=== PATIENT | male | born 1960 | race Caucasian/White ===

== ENCOUNTER 2016-07-27 12:09 | Emergency (ER) | payer MEDICAID ==
[2016-07-27 12:15] VITALS: TEMP 97.3
--- NOTE | 2016-07-27 12:28 | CPEKG ---
Heart Rate: 126 RR Interval: 476 QRSD Interval: 82 QT Interval: 352 QTC Interval: 510 QRS [place]: 82 T Wave [place]: 27 EKG Severity - ABNORMAL ECG - EKG Impression: ATRIAL FIBRILLATION EKG Impression: VENTRICULAR TRIGEMINY EKG Impression: PROLONGED QT INTERVAL Electronically Signed By: Fritz Olson 27-Jul-2016 16:01:12
[2016-07-27] MEDS ORDERED: NS 1,000 ML IV ONE (12:29)
[2016-07-27 12:46] VITALS: BP 92/57; PULSE 66; RESP 18; O2SAT 96
--- NOTE | 2016-07-27 12:52 | EDPHY ---
H & P Stated Complaint: a fib Time Seen by Provider: 07/27/16 12:51 HPI/ROS: CHIEF COMPLAINT: Recurrent atrial fibrillation HISTORY OF PRESENT ILLNESS: The patient presents to the ED after an episode of recurrent atrial fibrillation. His symptoms began several hours prior to arrival. He reports mild associated dyspnea. The patient denies any chest pain or asymmetric calf pain or swelling. The patient reports he has been fully compliant with his Ticosyn, Coumadin, lisinopril and diltiazem. The patient reports he has had regular follow-up with his primary care provider. He denies any additional ongoing medical complaints. REVIEW OF SYSTEMS: A comprehensive 10 point review of systems is otherwise negative aside from elements mentioned in the history of present illness. - Personal History Current Tetanus/Diphtheria Vaccine: Yes Tetanus Vaccine Date: 2008 - Medical/Surgical History Hx Asthma: No Hx Chronic Respiratory Disease: No Hx Diabetes: No Hx Cardiac Disease: Yes Hx Renal Disease: No Hx Cirrhosis: No Hx Alcoholism: No Hx HIV/AIDS: No Hx Splenectomy or Spleen Trauma: No Other PMH: A fib, RSD, medication non-compliance, migraine headache, hemorrhoids , HTN, depression, anxiety, neuropathy, PTSD, ANAY, marijuana use. IBS, rectal bleeding r/t anticoagulants - Social History Smoking Status: Never smoked - Physical Exam Exam: General Appearance: Alert, no distress Eyes: Pupils equal and round no pallor or injection ENT, Mouth: Mucous membranes moist Respiratory: There are no retractions, lungs are clear to auscultation Cardiovascular: Regular rate and rhythm Gastrointestinal: Abdomen is soft and nontender, no masses, bowel sounds normal Neurological: A&O, normal motor function, normal sensory exam, normal cranial nerves Skin: Warm and dry, no rashes Musculoskeletal: Neck is supple nontender Extremities: symmetrical, full range of motion Constitutional: Initial Vital Signs Temperature (C) 36.3 C 07/27/16 12:13 Heart Rate 140 H 07/27/16 12:13 Respiratory Rate 22 H 07/27/16 12:13 Blood Pressure 79/66 L 07/27/16 12:13 O2 Sat (%) 97 07/27/16 12:13 O2 Delivery Mode Room Air Allergies/Adverse Reactions: amiodarone [Amiodarone] Allergy (Severe, Verified 07/27/16 12:12) Hives aspirin [Aspirin] Allergy (Severe, Verified 07/27/16 12:12) Hives digoxin [Digoxin] Allergy (Severe, Verified 07/27/16 12:12) Hives ezetimibe [Ezetimibe] Allergy (Severe, Verified 07/27/16 12:12) Hives metoprolol succinate [From Toprol XL] Allergy (Severe, Verified 07/27/16 12:12) Hives morphine [Morphine] Allergy (Severe, Verified 07/27/16 12:12) Other-Enter Comments Penicillins Allergy (Severe, Verified 07/27/16 12:12) Hives simvastatin [Simvastatin] Allergy (Severe, Verified 07/27/16 12:12) Hives zolpidem [Zolpidem] Allergy (Severe, Verified 07/27/16 12:12) Hives lorazepam [Lorazepam] Allergy (Unknown, Verified 07/27/16 12:12) Barbiturates Allergy (Verified 07/27/16 12:12) carvedilol Allergy (Verified 07/27/16 12:12) Hives codeine [Codeine] Allergy (Verified 07/27/16 12:12) Horse/Equine Containing Products [Horse/Equine Product Derivatives] Allergy ( Verified 07/27/16 12:12) lidocaine [Lidocaine] Allergy (Verified 07/27/16 12:12) meperidine HCl [From Demerol] Allergy (Verified 07/27/16 12:12) Opioids - Morphine Analogues [Opioids-Morphine & Related] Allergy (Verified 12:12) Unknown procaine HCl [From Novocain] Allergy (Verified 07/27/16 12:12) Sulfa (Sulfonamide Antibiotics) Allergy (Verified 07/27/16 12:12) sumatriptan [From Imitrex] Allergy (Verified 07/27/16 12:12) sumatriptan succinate [From Imitrex] Allergy (Verified 07/27/16 12:12) tetracycline [Tetracycline] Allergy (Verified 07/27/16 12:12) Home Medications: Medication Instructions Recorded Acetaminophen [Tylenol 325mg (*)] 650 mg PO Q4-6PRN PRN 04/18/16 Dofetilide [Tikosyn 0.25 MG (*)] 0.25 mg PO BID 04/18/16 Lisinopril [Zestril 40 mg (*)] 40 mg PO DAILY 04/18/16 SUMAtriptan [Imitrex 50 MG (*)] 50 mg PO DAILY PRN 04/18/16 Diltiazem Cd [Cardizem ER 120 MG 120 mg PO TID #90 cap 04/21/16 (*)] Warfarin Sodium [Coumadin 5MG (*)] 10 mg PO SUMOTUWETHFR 04/25/16 Warfarin Sodium [Coumadin 5MG (*)] 12.5 mg PO SA 04/25/16 Acetaminophen [Tylenol 325mg (*)] 650 mg PO Q4HRS PRN #0 tab 04/26/16 Ticosyn 05/01/16 Medical Decision Making - Diagnostics Imaging: EKG: Complete interpretation has been separately recorded in the [facility] archive. Summary impression: Atrial fibrillation with rapid ventricular response, rate 126. ED Course/Re-evaluation: While in the emergency department the patient was observed to convert into a normal sinus rhythm. I evaluated the patient at 1:15 p.m.. He is hemodynamically stable and a sinus rhythm. The patient reports he has been compliant with his Coumadin. At this point time I do feel he can safely be discharged from the emergency department. He is discharged home with customary aftercare instructions and return precautions. Differential Diagnosis: Differential diagnosis considered includes SVT, atrial fibrillation, premature ventricular contractions - Data Points Medications Given: Discontinued Medications Sodium Chloride (Ns) 1,000 mls @ 0 mls/hr IV ONCE ONE PRN Reason: Wide Open Stop: 07/27/16 12:30 Last Admin: 07/27/16 12:30 Dose: 1,000 mls Departure - Departure Disposition: Home, Routine, Self-Care Clinical Impression: Atrial fibrillation Condition: Good Instructions: Atrial Fibrillation (ED) Referrals: Lio Bryan MD [Primary Care Provider] - As per Instructions
== END 2016-07-27 13:04 | disposition home or self-care (01) ==
DX: I48.91 Unspecified atrial fibrillation (principal); I10 Essential (primary) hypertension; Z79.01 Long term (current) use of anticoagulants

== ENCOUNTER 2016-12-01 10:34 | Emergency (ER) | payer OTHER, MEDICAID ==
[2016-12-01] MEDS ORDERED: DILTIAZEM 25 MG/5 ML VIAL IVP ONE ×2 (10:46→11:34)
--- NOTE | 2016-12-01 10:46 | CPEKG ---
Heart Rate: 160 RR Interval: 375 QRSD Interval: 88 QT Interval: 300 QTC Interval: 490 QRS [place]: 93 T Wave [place]: -52 EKG Severity - ABNORMAL ECG - EKG Impression: ATRIAL FIBRILLATION EKG Impression: PAIRED VENTRICULAR PREMATURE COMPLEXES EKG Impression: BORDERLINE RIGHT AXIS DEVIATION Electronically Signed By: Kristine Catherine 02-Dec-2016 20:37:48
[2016-12-01 10:52] LABS: % IMMATURE GRANULYOCYTES 0.2 % (0.0-1.1); ABSOLUTE IMMATURE GRANULOCYTES 0.02 10^3/uL (0.00-0.10); ADD DIFF? NO; ADD MORPH? NO; ADD SCAN? NO; ATYPICAL LYMPHOCYTE FLAG 10 (0-99); FRAGMENT RBC FLAG 0 (0-99); HEMATOCRIT 44.6 % (40.0-51.0); HEMOGLOBIN 15.1 g/dL (13.7-17.5); LEFT SHIFT FLG 0 (0-99); LIPEMIA HEMOLYSIS FLAG 90 (0-99); MEAN CELL HEMOGLOBIN 30.3 pg (27.9-34.1); MEAN CELL HEMOGLOBIN CONCENTR. 33.9 g/dL (32.4-36.7); MEAN CELL VOLUME 89.6 fL (81.5-99.8); MEAN PLATELET VOLUME 12.4 fL (8.7-11.7); PLATELET CLUMPS FLAG 10 (0-99); PLATELET COUNT 210 10^3/uL (150-400); RED BLOOD CELL COUNT 4.98 10^6/uL (4.40-6.38); RED CELL DISTRIBUTION WIDTH 14.6 % (11.5-15.2)
--- NOTE | 2016-12-01 10:58 | EDPHY ---
H & P Time Seen by Provider: 12/01/16 10:45 HPI/ROS: CHIEF COMPLAINT: Recurrent atrial fibrillation HISTORY OF PRESENT ILLNESS: The patient is a 56-year-old male, well known to this ED for recurrent atrial fibrillation, presents in Afib with RVR. The patient states he developed palpitations around 9:30 a.m. while on the bus. He has associated dizziness and states it is "the usual". He has been fully compliant with his Ticosyn, Lisinopril, Coumadin, and Diltazem. He denies any additional medical complaints. REVIEW OF SYSTEMS: A comprehensive 10 point review of systems is otherwise negative aside from elements mentioned in the history of present illness. Past Medical/Surgical History: Atrial fibrillation, RSD, Migraines, Hemorrhoids, HTN, Depression, Anxiety, Neuropathy, PTSD, ANAY, Marijuana use. IBS, Rectal bleeding. Social History: Nonsmoker. No alcohol. Currently resides in [place]. Smoking Status: Never smoked Physical Exam: General Appearance: Alert, pleasant Eyes: Pupils equal and round, no conjunctival pallor or injection ENT, Mouth: Mucous membranes moist Neck: Normal inspection Respiratory: Lungs are clear to auscultation Cardiovascular: irregularly irregular tachycardia Gastrointestinal: Abdomen is soft and non-tender Neurological: A&O, nonfocal exam Skin: Warm and dry, no rash Extremities: Nontender, no pedal edema Psychiatric: Mood and affect normal Constitutional: Initial Vital Signs Temperature (C) 36.7 C 12/01/16 10:42 Heart Rate 158 H 12/01/16 10:42 Respiratory Rate 18 12/01/16 10:42 Blood Pressure 146/82 H 12/01/16 10:42 O2 Sat (%) 95 12/01/16 10:42 O2 Delivery Mode Room Air Allergies/Adverse Reactions: amiodarone [Amiodarone] Allergy (Severe, Verified 07/27/16 12:12) Hives aspirin [Aspirin] Allergy (Severe, Verified 07/27/16 12:12) Hives digoxin [Digoxin] Allergy (Severe, Verified 07/27/16 12:12) Hives ezetimibe [Ezetimibe] Allergy (Severe, Verified 07/27/16 12:12) Hives metoprolol succinate [From Toprol XL] Allergy (Severe, Verified 07/27/16 12:12) Hives morphine [Morphine] Allergy (Severe, Verified 07/27/16 12:12) Other-Enter Comments Penicillins Allergy (Severe, Verified 07/27/16 12:12) Hives simvastatin [Simvastatin] Allergy (Severe, Verified 07/27/16 12:12) Hives zolpidem [Zolpidem] Allergy (Severe, Verified 07/27/16 12:12) Hives lorazepam [Lorazepam] Allergy (Unknown, Verified 07/27/16 12:12) Barbiturates Allergy (Verified 07/27/16 12:12) carvedilol Allergy (Verified 07/27/16 12:12) Hives codeine [Codeine] Allergy (Verified 07/27/16 12:12) Horse/Equine Containing Products [Horse/Equine Product Derivatives] Allergy ( Verified 07/27/16 12:12) lidocaine [Lidocaine] Allergy (Verified 07/27/16 12:12) meperidine HCl [From Demerol] Allergy (Verified 07/27/16 12:12) Opioids - Morphine Analogues [Opioids-Morphine & Related] Allergy (Verified 12:12) Unknown procaine HCl [From Novocain] Allergy (Verified 07/27/16 12:12) Sulfa (Sulfonamide Antibiotics) Allergy (Verified 07/27/16 12:12) sumatriptan [From Imitrex] Allergy (Verified 07/27/16 12:12) sumatriptan succinate [From Imitrex] Allergy (Verified 07/27/16 12:12) tetracycline [Tetracycline] Allergy (Verified 07/27/16 12:12) Home Medications: Medication Instructions Recorded Dofetilide [Tikosyn 0.25 MG (*)] 0.25 mg PO BID 04/18/16 Lisinopril [Zestril 40 mg (*)] 40 mg PO DAILY 04/18/16 Diltiazem Cd [Cardizem ER 120 MG 120 mg PO TID #90 cap 04/21/16 (*)] Warfarin Sodium [Coumadin 5MG (*)] 10 mg PO SUMOTUWETHFR 04/25/16 Warfarin Sodium [Coumadin 5MG (*)] 12.5 mg PO SA 04/25/16 Ticosyn 05/01/16 Medical Decision Making - Diagnostics EKG Interpretation: The 12 lead EKG was interpreted by myself. See hard copy and/or "[facility]emaster" electronic copy for interpretation: Atrial fibrillation, rate 160. ED Course/Re-evaluation: The patient presents with recurrent atrial fibrillation. Diltiazem 10mg IV x 2 given. While in the ED the patient converted into normal sinus rhythm. He is hemodynamically stable. Patient is safe to be discharged from the emergency department. Will f/u with [facility]. Differential Diagnosis: includes though not limited to ACS, ventricular dysrhythmia, hypotension, medication noncompliance - Data Points Laboratory Results: Laboratory Results 12/01/16 10:42 12/01/16 10:42 Medications Given: Discontinued Medications Diltiazem HCl (Cardizem 25 Mg/5 Ml Vial) 10 mg IVP EDNOW ONE Stop: 12/01/16 10:47 Last Admin: 12/01/16 11:00 Dose: 10 mg Diltiazem HCl (Cardizem 25 Mg/5 Ml Vial) 10 mg IVP EDNOW ONE Stop: 12/01/16 11:35 Last Admin: 12/01/16 11:40 Dose: 10 mg Departure - Departure Disposition: Home, Routine, Self-Care Clinical Impression: Atrial fibrillation with RVR Condition: Good Instructions: A-fib (Atrial Fibrillation) (ED) Additional Instructions: Please followup with your primary care physician. Referrals: Lio Bryan MD [Primary Care Provider] - 5-7 days, call for appt. Report Scribed for: Kristine Catherine Report Scribed by: Kori Velazco Date of Report: 12/01/16 Time of Report: 10:52 Physician Review and Approval Statement: 12/01/16 10:52 Portions of this note were transcribed by a medical laboratory technical officer. I personally performed the history, physical exam, and medical decision-making; and confirmed the accuracy of the information in the transcribed note.
[2016-12-01 11:02] LABS: ANION GAP 13 mEq/L (8-16); CALCIUM 9.3 mg/dL (8.5-10.4); CARBON DIOXIDE 22 mEq/l (22-31); CHLORIDE 107 mEq/L (97-110); CREATININE 0.9 mg/dL (0.7-1.3); GLOMERULAR FILTRATION RATE > 60; GLUCOSE 114 mg/dL (70-100); INR 1.93 (0.83-1.16); POTASSIUM 3.9 mEq/L (3.5-5.2); PROTIME(PATIENT) 22.2 SEC (12.0-15.0); SODIUM 142 mEq/L (134-144)
[2016-12-01 11:10] VITALS: RESP 16
[2016-12-01 12:26] VITALS: BP 128/70; PULSE 72; TEMP 97.9; O2SAT 95
== END 2016-12-01 12:43 | disposition home or self-care (01) ==
LOC: EDUNIT#
DX: I48.91 Unspecified atrial fibrillation (principal); I10 Essential (primary) hypertension; Z79.01 Long term (current) use of anticoagulants
CPT/HCPCS: 96374

== ENCOUNTER 2017-01-12 11:38 | Emergency (ER) | payer OTHER, MEDICAID ==
[2017-01-12 11:42] VITALS: BP 109/84; PULSE 104; RESP 16; TEMP 98.4; O2SAT 96
== END 2017-01-12 12:37 | disposition left against medical advice (07) ==
DX: Z53.21 Procedure and treatment not carried out due to patient leaving prior to being seen by health care provider (principal)

== ENCOUNTER 2017-01-23 15:27 | Emergency (ER) | payer OTHER, MEDICAID ==
[2017-01-23 15:32] VITALS: TEMP 98.1
--- NOTE | 2017-01-23 15:39 | CPEKG ---
Heart Rate: 165 RR Interval: 364 QRSD Interval: 82 QT Interval: 308 QTC Interval: 511 QRS [place]: 82 T Wave [place]: 10 EKG Severity - ABNORMAL ECG - EKG Impression: ATRIAL FIBRILLATION WITH RAPID V-RATE EKG Impression: RUN OF VENTRICULAR PREMATURE COMPLEXES EKG Impression: ST DEPRESSION, PROBABLY RATE RELATED Electronically Signed By: Fritz Olson 23-Jan-2017 15:52:56
[2017-01-23] MEDS ORDERED: NS 1,000 ML IV ONE (15:43)
[2017-01-23] MEDS ORDERED: DILTIAZEM 25 MG/5 ML VIAL IVP ONE ×2 (15:43)
--- NOTE | 2017-01-23 15:51 | EDPHY ---
H & P Stated Complaint: a-fib Time Seen by Provider: 01/23/17 15:34 HPI/ROS: CHIEF COMPLAINT: Palpitations HISTORY OF PRESENT ILLNESS: The patient presents to the emergency department with complaints of palpitations. The patient's symptoms began 0.5 hours ago. The patient has a history of paroxysmal atrial fibrillation. The patient is currently taking Tikosyn and diltiazem for this condition. He is also anticoagulated with Coumadin. The patient reports he went into atrial fibrillation after an argument with his sister. The patient denies any chest pain. The patient reports he has been compliant with his regular medications. The patient denies additional acute medical complaints. REVIEW OF SYSTEMS: A comprehensive 10 point review of systems is otherwise negative aside from elements mentioned in the history of present illness. Source: Patient Exam Limitations: No limitations - Personal History Tetanus Vaccine Date: 2008 - Medical/Surgical History Hx Asthma: No Hx Chronic Respiratory Disease: No Hx Diabetes: No Hx Cardiac Disease: Yes Hx Renal Disease: No Hx Cirrhosis: No Hx Alcoholism: No Hx HIV/AIDS: No Hx Splenectomy or Spleen Trauma: No Other PMH: A fib, RSD, migraine headache, hemorrhoids, HTN, depression, anxiety , neuropathy, PTSD, ANAY, marijuana use. IBS, rectal bleeding r/t anticoagulants - Social History Smoking Status: Never smoked - Physical Exam Exam: General Appearance: Alert, no distress Eyes: Pupils equal and round no pallor or injection ENT, Mouth: Mucous membranes moist Respiratory: There are no retractions, lungs are clear to auscultation Cardiovascular: Tachycardic, irregular Gastrointestinal: Abdomen is soft and nontender, no masses, bowel sounds normal Neurological: A&O, normal motor function, normal sensory exam, normal cranial nerves Skin: Warm and dry, no rashes Musculoskeletal: Neck is supple nontender Extremities: symmetrical, full range of motion Constitutional: Initial Vital Signs Temperature (C) 36.7 C 01/23/17 15:30 Heart Rate 93 01/23/17 15:30 Respiratory Rate 20 01/23/17 15:30 Blood Pressure 139/91 H 01/23/17 15:30 O2 Sat (%) 96 01/23/17 15:30 O2 Delivery Mode Room Air Allergies/Adverse Reactions: amiodarone [Amiodarone] Allergy (Severe, Verified 01/23/17 15:29) Hives aspirin [Aspirin] Allergy (Severe, Verified 01/23/17 15:29) Hives digoxin [Digoxin] Allergy (Severe, Verified 01/23/17 15:29) Hives ezetimibe [Ezetimibe] Allergy (Severe, Verified 01/23/17 15:29) Hives metoprolol succinate [From Toprol XL] Allergy (Severe, Verified 01/23/17 15:29) Hives morphine [Morphine] Allergy (Severe, Verified 01/23/17 15:29) Other-Enter Comments Penicillins Allergy (Severe, Verified 01/23/17 15:29) Hives simvastatin [Simvastatin] Allergy (Severe, Verified 01/23/17 15:29) Hives zolpidem [Zolpidem] Allergy (Severe, Verified 01/23/17 15:29) Hives lorazepam [Lorazepam] Allergy (Unknown, Verified 01/23/17 15:29) Barbiturates Allergy (Verified 01/23/17 15:29) carvedilol Allergy (Verified 01/23/17 15:29) Hives codeine [Codeine] Allergy (Verified 01/23/17 15:29) Horse/Equine Containing Products [Horse/Equine Product Derivatives] Allergy ( Verified 01/23/17 15:29) lidocaine [Lidocaine] Allergy (Verified 01/23/17 15:29) meperidine HCl [From Demerol] Allergy (Verified 01/23/17 15:29) Opioids - Morphine Analogues [Opioids-Morphine & Related] Allergy (Verified 15:29) Unknown procaine HCl [From Novocain] Allergy (Verified 01/23/17 15:29) Sulfa (Sulfonamide Antibiotics) Allergy (Verified 01/23/17 15:29) sumatriptan [From Imitrex] Allergy (Verified 01/23/17 15:29) sumatriptan succinate [From Imitrex] Allergy (Verified 01/23/17 15:29) tetracycline [Tetracycline] Allergy (Verified 01/23/17 15:29) Home Medications: Medication Instructions Recorded Dofetilide [Tikosyn 0.25 MG (*)] 0.25 mg PO BID 04/18/16 Lisinopril [Zestril 40 mg (*)] 40 mg PO DAILY 04/18/16 Diltiazem Cd [Cardizem ER 120 MG 120 mg PO TID #90 cap 04/21/16 (*)] Warfarin Sodium [Coumadin 5MG (*)] 10 mg PO SUMOTUWETHFR 04/25/16 Warfarin Sodium [Coumadin 5MG (*)] 12.5 mg PO SA 04/25/16 Ticosyn 05/01/16 Medical Decision Making - Diagnostics EKG Interpretation: EKG: Complete interpretation has been separately recorded in the [facility] archive. Summary impression: Atrial fibrillation with rapid ventricular response, rate 165 ED Course/Re-evaluation: The patient had an IV established. He received 25 mg of IV diltiazem and a L of normal saline. The patient converted back to a normal sinus rhythm. The patient's protime was checked and found to be slightly low 1.4. The patient was observed in the emergency department without evidence of recurrent atrial fibrillation. 4:30 p.m.: Patient will be discharged home with instructions to return to the ED for recurrent palpitations or other concerns. He will follow up with his primary care provider for a recheck of his INR this week. Differential Diagnosis: Differential diagnosis considered includes atrial fibrillation, SVT, ventricular tachycardia, sinus tachycardia - Data Points Laboratory Results: 01/23/17 15:58 PT 16.9 SEC H SEC (12.0-15.0) INR 1.37 H (0.83-1.16) Medications Given: Discontinued Medications Diltiazem HCl (Cardizem 25 Mg/5 Ml Vial) 25 mg IVP EDNOW ONE Stop: 01/23/17 15:44 Last Admin: 01/23/17 15:52 Dose: 25 mg Sodium Chloride (Ns) 1,000 mls @ 0 mls/hr IV EDNOW ONE; Wide Open PRN Reason: Protocol Stop: 01/23/17 15:44 Last Admin: 01/23/17 16:00 Dose: 1,000 mls Departure - Departure Disposition: Home, Routine, Self-Care Clinical Impression: Atrial fibrillation with RVR Condition: Good Instructions: A-fib (Atrial Fibrillation) (ED) Additional Instructions: 1. Please continue your regular medications. 2. Your INR was 1.4 today. Please have this recheck by your primary care provider in the next 2-3 days. 3. Please return to the ED for recurrent palpitations or other concerns. Referrals: Lio Bryan MD [Primary Care Provider] - As per Instructions
[2017-01-23 16:12] LABS: INR 1.37 (0.83-1.16); PROTIME(PATIENT) 16.9 SEC (12.0-15.0)
[2017-01-23 16:15] VITALS: PULSE 65; O2SAT 93
[2017-01-23 16:49] VITALS: BP 127/89; RESP 18
== END 2017-01-23 16:50 | disposition home or self-care (01) ==
DX: I48.91 Unspecified atrial fibrillation (principal); E86.9 Volume depletion, unspecified; I10 Essential (primary) hypertension; Z79.01 Long term (current) use of anticoagulants
CPT/HCPCS: 96374

== ENCOUNTER 2017-03-18 10:46 | Emergency (ER) | payer OTHER, MEDICAID ==
[2017-03-18 10:52] VITALS: TEMP 98.2
[2017-03-18] MEDS ORDERED: DILTIAZEM 25 MG/5 ML VIAL IVP ONE (11:03)
--- NOTE | 2017-03-18 11:08 | CPEKG ---
Heart Rate: 90 RR Interval: 667 P-R Interval: 151 QRSD Interval: 82 QT Interval: 364 QTC Interval: 446 P [place]: 68 QRS [place]: 93 T Wave [place]: 34 EKG Severity - ABNORMAL ECG - EKG Impression: SINUS TACHYCARDIA EKG Impression: PAIRED VENTRICULAR PREMATURE COMPLEXES EKG Impression: PROMINENT P WAVES, NONDIAGNOSTIC EKG Impression: BORDERLINE RIGHT AXIS DEVIATION Electronically Signed By: Fritz Olson 18-Mar-2017 12:52:19
--- NOTE | 2017-03-18 11:39 | EDPHY ---
H & P Stated Complaint: "WENT INTO AFIB" Time Seen by Provider: 03/18/17 11:04 HPI/ROS: CHIEF COMPLAINT: Recurrent atrial fibrillation HISTORY OF PRESENT ILLNESS: The patient presents the emergency department with recurrent atrial fibrillation. He is well known to our department and frequently develops paroxysmal atrial fibrillation with rapid ventricular response. He typically response IV diltiazem. The patient reports he has been compliant with his medications. He denies acute chest pain or shortness of breath. He denies recent illness, fever, cough or congestion. The patient reports he developed atrial fibrillation at 4 o'clock this morning. He took his regular dose of Tikosyn and diltiazem. When his symptoms did not improve he took an additional dose of diltiazem. The patient denies any syncope. REVIEW OF SYSTEMS: A comprehensive 10 point review of systems is otherwise negative aside from elements mentioned in the history of present illness. Source: Patient - Personal History Tetanus Vaccine Date: 2008 - Medical/Surgical History Hx Asthma: No Hx Chronic Respiratory Disease: No Hx Diabetes: No Hx Cardiac Disease: Yes Hx Renal Disease: No Hx Cirrhosis: No Hx Alcoholism: No Hx HIV/AIDS: No Hx Splenectomy or Spleen Trauma: No Other PMH: A fib, RSD, migraine headache, hemorrhoids, HTN, depression, anxiety , neuropathy, PTSD, ANAY, marijuana use. IBS, rectal bleeding r/t anticoagulants - Social History Smoking Status: Never smoked - Physical Exam Exam: General Appearance: Alert, no distress Eyes: Pupils equal and round no pallor or injection ENT, Mouth: Mucous membranes moist Respiratory: Tachycardic, irregular Cardiovascular: Regular rate and rhythm Gastrointestinal: Abdomen is soft and nontender, no masses, bowel sounds normal Neurological: A&O, normal motor function, normal sensory exam, normal cranial nerves Skin: Warm and dry, no rashes Musculoskeletal: Neck is supple nontender Extremities: symmetrical, full range of motion Constitutional: Initial Vital Signs Temperature (C) 36.8 C 03/18/17 10:49 Heart Rate 106 H 03/18/17 10:49 Respiratory Rate 18 03/18/17 10:49 Blood Pressure 157/124 H 03/18/17 10:49 O2 Sat (%) 97 03/18/17 10:49 O2 Delivery Mode Room Air Allergies/Adverse Reactions: amiodarone [Amiodarone] Allergy (Severe, Verified 01/23/17 15:29) Hives aspirin [Aspirin] Allergy (Severe, Verified 01/23/17 15:29) Hives digoxin [Digoxin] Allergy (Severe, Verified 01/23/17 15:29) Hives ezetimibe [Ezetimibe] Allergy (Severe, Verified 01/23/17 15:29) Hives metoprolol succinate [From Toprol XL] Allergy (Severe, Verified 01/23/17 15:29) Hives morphine [Morphine] Allergy (Severe, Verified 01/23/17 15:29) Other-Enter Comments Penicillins Allergy (Severe, Verified 01/23/17 15:29) Hives simvastatin [Simvastatin] Allergy (Severe, Verified 01/23/17 15:29) Hives zolpidem [Zolpidem] Allergy (Severe, Verified 01/23/17 15:29) Hives lorazepam [Lorazepam] Allergy (Unknown, Verified 01/23/17 15:29) Barbiturates Allergy (Verified 01/23/17 15:29) carvedilol Allergy (Verified 01/23/17 15:29) Hives codeine [Codeine] Allergy (Verified 01/23/17 15:29) Horse/Equine Containing Products [Horse/Equine Product Derivatives] Allergy ( Verified 01/23/17 15:29) lidocaine [Lidocaine] Allergy (Verified 01/23/17 15:29) meperidine HCl [From Demerol] Allergy (Verified 01/23/17 15:29) Opioids - Morphine Analogues [Opioids-Morphine & Related] Allergy (Verified 15:29) Unknown procaine HCl [From Novocain] Allergy (Verified 01/23/17 15:29) Sulfa (Sulfonamide Antibiotics) Allergy (Verified 01/23/17 15:29) sumatriptan [From Imitrex] Allergy (Verified 01/23/17 15:29) sumatriptan succinate [From Imitrex] Allergy (Verified 01/23/17 15:29) tetracycline [Tetracycline] Allergy (Verified 01/23/17 15:29) Home Medications: Medication Instructions Recorded Dofetilide [Tikosyn 0.25 MG (*)] 0.25 mg PO BID 04/18/16 Lisinopril [Zestril 40 mg (*)] 40 mg PO DAILY 04/18/16 Diltiazem Cd [Cardizem ER 120 MG 120 mg PO TID #90 cap 04/21/16 (*)] Warfarin Sodium [Coumadin 5MG (*)] 10 mg PO SUMOTUWETHFR 04/25/16 Warfarin Sodium [Coumadin 5MG (*)] 12.5 mg PO SA 04/25/16 Ticosyn 05/01/16 Medical Decision Making - Diagnostics EKG Interpretation: EKG: Complete interpretation has been separately recorded in the Trac[facility]aster archive. Summary impression: Atrial fibrillation, ventricular rate 139, no ST segment elevation or depression. 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 He had an IV established. He received 25 mg of IV diltiazem. Patient was re-evaluated at 11:40 a.m.. He is currently in a sinus rhythm with a fair amount of PACs and PVCs. He is hemodynamically stable with a normal blood pressure. The patient has no abnormalities noted on his neurologic exam. Re-examination at 12:35 p.m.. Patient is currently in a normal sinus rhythm. He has no acute complaints. He will be discharged home with customary aftercare instructions and return precautions. Differential Diagnosis: Differential diagnosis considered includes atrial fibrillation, ventricular tachycardia, SVT, sinus tachycardia - Data Points Medications Given: Discontinued Medications Diltiazem HCl (Cardizem 25 Mg/5 Ml Vial) 25 mg IVP EDNOW ONE Stop: 03/18/17 11:04 Last Admin: 03/18/17 11:13 Dose: 25 mg Departure - Departure Disposition: Home, Routine, Self-Care Clinical Impression: Atrial fibrillation with RVR Condition: Good Instructions: A-fib (Atrial Fibrillation) (ED) Additional Instructions: 1. Continue your regular medications as prescribed. 2. 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 3. Please return to the ED for recurrent tachycardia, chest pain, difficulty breathing or other concerns. Referrals: Lio Bryan MD [Primary Care Provider] - As per Instructions
[2017-03-18 13:10] VITALS: BP 117/81; PULSE 71; RESP 16; O2SAT 96
--- NOTE | 2017-03-21 09:12 | CPEKG ---
Heart Rate: 139 RR Interval: 432 QRSD Interval: 82 QT Interval: Invalid QTC Interval: Invalid QRS [place]: 85 T Wave [place]: -25 EKG Severity - ABNORMAL ECG - EKG Impression: ATRIAL FIBRILLATION EKG Impression: BORDERLINE T ABNORMALITIES, INFERIOR LEADS Electronically Signed By: Elpidio Wright 23-Mar-2017 06:53:45
== END 2017-03-18 13:10 | disposition home or self-care (01) ==
DX: I48.91 Unspecified atrial fibrillation (principal); I10 Essential (primary) hypertension; Z79.01 Long term (current) use of anticoagulants
CPT/HCPCS: 96374

== ENCOUNTER 2017-06-06 16:19 | Emergency (ER) | payer OTHER, MEDICAID ==
--- NOTE | 2017-06-06 17:09 | CPEKG ---
Heart Rate: 59 RR Interval: 1017 P-R Interval: 164 QRSD Interval: 84 QT Interval: 432 QTC Interval: 428 P [place]: 47 QRS [place]: 79 T Wave [place]: 26 EKG Severity - NORMAL ECG - EKG Impression: SINUS RHYTHM Electronically Signed By: Dougie Solorzano 07-Jun-2017 15:43:52
[2017-06-06 17:17] VITALS: RESP 16; O2SAT 98
--- NOTE | 2017-06-06 17:21 | EDPHY ---
H & P Stated Complaint: A- Fib HPI/ROS: CHIEF COMPLAINT: Atrial fibrillation HISTORY OF PRESENT ILLNESS: The patient is a 56 y/o male with a history of atrial fibrillation complaining of atrial fibrillation since 10:00, 7.5 hours ago. He felt normal when he woke up at 04:00 this morning to take his medications. Around 07:45, he began to feel poorly but was able to eat breakfast. He took a Diltazem at 09:45. Around 10:00 he became aware of being in atrial fibrillation. He took another Diltazem which did not relieve his symptoms. At 14:00, 3.5 hours ago, he took a Tikosyn and thirdDiltazem without any relief. Denies shortness of breath, chest pain, weakness or numbness, fever or other pertinent symptoms. REVIEW OF SYSTEMS: A ten point review of systems was performed and is negative with the exception of the items mentioned in the HPI. Past medical history: Atrial fibrillation RSD Migraine headache Hypertension Depression Neuropathy Past surgical history: Denies Family history: Denies Social history: Lives in [place] Non-smoker Marijuana use Limited Physical Exam: General Appearance: Alert. Vital signs reviewed. Blood pressure 89/64 on arrival. Blood pressure 122/80 at discharge. Eyes: Pupils equal and round, no conjunctival injection, no discharge. Anicteric. ENT, Mouth: Mucous membranes are moist, no oropharyngeal erythema or edema. Respiratory: Lungs are clear to auscultation; no wheezes, rales, or rhonchi. Cardiovascular: Regular rate and rhythm; no murmur, rub, or gallop. Gastrointestinal: Abdomen is soft and nontender, no masses or organomegaly, bowel sounds normal. Skin: Warm and dry, no rashes on exposed skin, normal color. Neurological: Alert and oriented. Moving all four extremities easily and equally. Psychiatric: Normal affect. - Personal History Current Tetanus Diphtheria and Acellular Pertussis (TDAP): Yes Tetanus Vaccine Date: 2008 - Medical/Surgical History Hx Asthma: No Hx Chronic Respiratory Disease: No Hx Diabetes: No Hx Cardiac Disease: Yes Hx Renal Disease: No Hx Cirrhosis: No Hx Alcoholism: No Hx HIV/AIDS: No Hx Splenectomy or Spleen Trauma: No Other PMH: A fib, RSD, migraine headache, hemorrhoids, HTN, depression, anxiety , neuropathy, PTSD, ANAY, marijuana use. IBS, rectal bleeding r/t anticoagulants - Social History Smoking Status: Never smoked Constitutional: Initial Vital Signs Temperature (C) 36.6 C 06/06/17 16:19 Heart Rate 78 06/06/17 16:19 Respiratory Rate 18 06/06/17 16:19 Blood Pressure 89/64 L 06/06/17 16:19 O2 Sat (%) 96 06/06/17 16:19 O2 Delivery Mode Room Air Allergies/Adverse Reactions: amiodarone [Amiodarone] Allergy (Severe, Verified 01/23/17 15:29) Hives aspirin [Aspirin] Allergy (Severe, Verified 01/23/17 15:29) Hives digoxin [Digoxin] Allergy (Severe, Verified 01/23/17 15:29) Hives ezetimibe [Ezetimibe] Allergy (Severe, Verified 01/23/17 15:29) Hives metoprolol succinate [From Toprol XL] Allergy (Severe, Verified 01/23/17 15:29) Hives morphine [Morphine] Allergy (Severe, Verified 01/23/17 15:29) Other-Enter Comments Penicillins Allergy (Severe, Verified 01/23/17 15:29) Hives simvastatin [Simvastatin] Allergy (Severe, Verified 01/23/17 15:29) Hives zolpidem [Zolpidem] Allergy (Severe, Verified 01/23/17 15:29) Hives lorazepam [Lorazepam] Allergy (Unknown, Verified 01/23/17 15:29) Barbiturates Allergy (Verified 01/23/17 15:29) carvedilol Allergy (Verified 01/23/17 15:29) Hives codeine [Codeine] Allergy (Verified 01/23/17 15:29) Horse/Equine Containing Products [Horse/Equine Product Derivatives] Allergy ( Verified 01/23/17 15:29) lidocaine [Lidocaine] Allergy (Verified 01/23/17 15:29) meperidine HCl [From Demerol] Allergy (Verified 01/23/17 15:29) Opioids - Morphine Analogues [Opioids-Morphine & Related] Allergy (Verified 15:29) Unknown procaine HCl [From Novocain] Allergy (Verified 01/23/17 15:29) Sulfa (Sulfonamide Antibiotics) Allergy (Verified 01/23/17 15:29) sumatriptan [From Imitrex] Allergy (Verified 01/23/17 15:29) sumatriptan succinate [From Imitrex] Allergy (Verified 01/23/17 15:29) tetracycline [Tetracycline] Allergy (Verified 01/23/17 15:29) Home Medications: Medication Instructions Recorded Dofetilide [Tikosyn 0.25 MG (*)] 0.25 mg PO BID 04/18/16 Lisinopril [Zestril 40 mg (*)] 40 mg PO DAILY 04/18/16 Diltiazem Cd [Cardizem ER 120 MG 120 mg PO TID #90 cap 04/21/16 (*)] Warfarin Sodium [Coumadin 5MG (*)] 10 mg PO SUMOTUWETHFR 04/25/16 Warfarin Sodium [Coumadin 5MG (*)] 12.5 mg PO SA 04/25/16 Ticosyn 05/01/16 Medical Decision Making - Diagnostics Imaging: I viewed and interpreted images myself ED Course/Re-evaluation: The patient is a 56 y/o male with a history of atrial fibrillation presenting with atrial fibrillation since 10:00, 7.5 hours ago. However, he converted into sinus rhythm after arrival in the emergency department. I preformed a limited physical exam. 1708: The 12 lead EKG was interpreted by myself as sinus rhythm with a rate of 59. See hard copy and/or "tracemaster" electronic copy for interpretation. Reassessed patient and discussed return precautions. Patient is comfortable with this plan. This patient is well-known to me from previous emergency department visits. He is quite comfortable managing his paroxysmal atrial fibrillation at home. He is currently in a sinus rhythm. I do not feel the need for blood work for further emergency department evaluation and he is in agreement with this approach. He was initially hypotensive but at discharge his blood pressure is 122/80. He is feeling well. He understands the danger signs that should prompt him to return. Differential Diagnosis: I considered a differential diagnosis that includes but is not limited to infection, valvular disease, ACS, medication noncompliance, dehydration, electrolyte imbalance--any of which might cause atrial fibrillation to resurfaced. Departure - Departure Disposition: Home, Routine, Self-Care Clinical Impression: Atrial fibrillation Qualifiers: Atrial fibrillation type: paroxysmal Qualified Code(s): I48.0 - Paroxysmal atrial fibrillation Condition: Good Instructions: A-fib (Atrial Fibrillation) (ED) Additional Instructions: 1. Continue to take your medications as prescribed. 2. Follow-up with your primary doctor within 72 hours for unimproved symptoms. 3. Return to the Emergency Department for fever, chest pain, shortness of breath , increasing pain or other worsening of condition. Referrals: Lio Bryan MD [Primary Care Provider] - As per Instructions Report Scribed for: Alejandra Locke Report Scribed by: Sofia Glynn Date of Report: 06/06/17 Time of Report: 17:38 Physician Review and Approval Statement: 06/06/17 17:21 Portions of this note were transcribed by the biomedical photographer. I, Dr. Alejandra Locke, personally performed the history, physical exam, and medical decision- making; and confirmed the accuracy of the information in the transcribed note.
[2017-06-06 17:44] VITALS: TEMP 98.6
[2017-06-06 17:53] VITALS: BP 122/80; PULSE 70
== END 2017-06-06 17:53 | disposition home or self-care (01) ==
DX: I48.0 Paroxysmal atrial fibrillation (principal); I10 Essential (primary) hypertension; Z79.01 Long term (current) use of anticoagulants

== ENCOUNTER 2017-09-28 12:56 | Emergency (ER) | payer OTHER, MEDICAID ==
[2017-09-28] MEDS ORDERED: NS 1,000 ML IV ONE (13:38)
[2017-09-28] MEDS ORDERED: DILTIAZEM 25 MG/5 ML VIAL IVP ONE (13:38)
--- NOTE | 2017-09-28 13:42 | EDPHY ---
H & P Stated Complaint: Afib again Time Seen by Provider: 09/28/17 13:33 HPI/ROS: CHIEF COMPLAINT: AFib again HISTORY OF PRESENT ILLNESS: The patient is a 56-year-old man with a history of paroxysmal AFib. He has been seen at the ER multiple times and I familiar with him. He states that he saw Dr. Bryan yesterday and was not in atrial fibrillation. Last night he had Thai food for dinner which was very salty and made him urinate a lot. He then vomited once this morning. About 3 years ago he began to feel the palpitations. He is very confident when he is or is not in AFib but states that he can feel it every time. He the takes diltiazem at home and states that when he gets IV fluids here and a push dose of diltiazem that usually corrects is AFib. He also takes Tikosyn and states that he is due for his afternoon dose. REVIEW OF SYSTEMS: Constitutional: denies: chills, fever, recent illness, recent injury EENTM: denies: blurred vision, double vision, nose congestion Respiratory: denies: cough, shortness of breath Cardiac: denies: chest pain, irregular heart rate, lightheadedness, palpitations Gastrointestinal/Abdominal: denies: abdominal pain, diarrhea, nausea, vomiting, blood streaked stools Genitourinary: denies: dysuria, frequency, hematuria, pain Musculoskeletal: denies: joint pain, muscle pain Skin: denies: lesions, rash, jaundice, bruising Neurological: denies: headache, numbness, paresthesia, tingling, dizziness, weakness Hematologic/Lymphatic: denies: blood clots, easy bleeding, easy bruising Immunologic/allergic: denies: HIV/AIDS, transplant EXAM: GENERAL: Well-appearing, well-nourished and in no acute distress. HEAD: Atraumatic, normocephalic. EYES: Pupils equal round and reactive to light, extraocular movements intact, sclera anicteric, conjunctiva are normal. ENT: TMs normal, nares patent, oropharynx clear without exudates. Moist mucous membranes. NECK: Normal range of motion, supple without lymphadenopathy or JVD. LUNGS: Breath sounds clear to auscultation bilaterally and equal. No wheezes rales or rhonchi. HEART: Palpitations, irregular rhythm, tachycardic ABDOMEN: Soft, nontender, normoactive bowel sounds. No guarding, no rebound. No masses appreciated. BACK: No CVA tenderness, no spinal tenderness, step-offs or deformities EXTREMITIES: Normal range of motion, no pitting or edema. No clubbing or cyanosis. NEUROLOGICAL: Cranial nerves II through XII grossly intact. Normal speech, normal gait. 5/5 strength, normal movement in all extremities, normal sensation PSYCH: Normal mood, normal affect. SKIN: Warm, dry, normal turgor, no visible rashes or lesions. Source: Patient Exam Limitations: No limitations - Personal History Current Tetanus Diphtheria and Acellular Pertussis (TDAP): Yes Tetanus Vaccine Date: 2008 - Medical/Surgical History Hx Asthma: No Hx Chronic Respiratory Disease: No Hx Diabetes: No Hx Cardiac Disease: Yes Hx Renal Disease: No Hx Cirrhosis: No Hx Alcoholism: No Hx HIV/AIDS: No Hx Splenectomy or Spleen Trauma: No Other PMH: A fib, RSD, migraine headache, hemorrhoids, HTN, depression, anxiety , neuropathy, PTSD, ANAY, marijuana use. IBS, rectal bleeding r/t anticoagulants - Family History Significant Family History: No pertinent family hx - Social History Smoking Status: Never smoked Alcohol Use: Sober Drug Use: None Constitutional: Initial Vital Signs Temperature (C) 36.6 C 09/28/17 13:16 Heart Rate 122 H 09/28/17 13:16 Respiratory Rate 18 09/28/17 13:16 Blood Pressure 102/76 09/28/17 13:16 O2 Sat (%) 96 09/28/17 13:16 O2 Delivery Mode Room Air Allergies/Adverse Reactions: amiodarone [Amiodarone] Allergy (Severe, Verified 09/28/17 13:15) Hives aspirin [Aspirin] Allergy (Severe, Verified 09/28/17 13:15) Hives digoxin [Digoxin] Allergy (Severe, Verified 09/28/17 13:15) Hives ezetimibe [Ezetimibe] Allergy (Severe, Verified 09/28/17 13:15) Hives metoprolol succinate [From Toprol XL] Allergy (Severe, Verified 09/28/17 13:15) Hives morphine [Morphine] Allergy (Severe, Verified 09/28/17 13:15) Other-Enter Comments Penicillins Allergy (Severe, Verified 09/28/17 13:15) Hives simvastatin [Simvastatin] Allergy (Severe, Verified 09/28/17 13:15) Hives zolpidem [Zolpidem] Allergy (Severe, Verified 09/28/17 13:15) Hives lorazepam [Lorazepam] Allergy (Unknown, Verified 09/28/17 13:15) Barbiturates Allergy (Verified 09/28/17 13:15) carvedilol Allergy (Verified 09/28/17 13:15) Hives codeine [Codeine] Allergy (Verified 09/28/17 13:15) Horse/Equine Containing Products [Horse/Equine Product Derivatives] Allergy ( Verified 09/28/17 13:15) lidocaine [Lidocaine] Allergy (Verified 09/28/17 13:15) meperidine HCl [From Demerol] Allergy (Verified 09/28/17 13:15) Opioids - Morphine Analogues [Opioids-Morphine & Related] Allergy (Verified 13:15) Unknown procaine HCl [From Novocain] Allergy (Verified 09/28/17 13:15) Sulfa (Sulfonamide Antibiotics) Allergy (Verified 09/28/17 13:15) sumatriptan [From Imitrex] Allergy (Verified 09/28/17 13:15) sumatriptan succinate [From Imitrex] Allergy (Verified 09/28/17 13:15) tetracycline [Tetracycline] Allergy (Verified 09/28/17 13:15) Home Medications: Medication Instructions Recorded Dofetilide [Tikosyn 0.25 MG (*)] 0.25 mg PO BID 04/18/16 Lisinopril [Zestril 40 mg (*)] 40 mg PO DAILY 04/18/16 Diltiazem Cd [Cardizem ER 120 MG 120 mg PO TID #90 cap 04/21/16 (*)] Warfarin Sodium [Coumadin 5MG (*)] 10 mg PO SUMOTUWETHFR 04/25/16 Warfarin Sodium [Coumadin 5MG (*)] 12.5 mg PO SA 04/25/16 Ticosyn 05/01/16 Medical Decision Making - Diagnostics EKG Interpretation: An EKG obtained and was read and documented in trace view. Please see trace view for full reading and report. Atrial fibrillation, no significant changes previous ED Course/Re-evaluation: 2:55 p.m. the patient is converted to sinus rhythm. He is eager to go home but will observe him for another 20 min or so. He declines further workup or testing at this time. Differential Diagnosis: Partial list of the Differential diagnosis considered include but were not limited to; atrial fibrillation, dehydration, electrolyte abnormality and although unlikely based on the history and physical exam, I also considered acute coronary disease, PE. I discussed these differential diagnoses and the plan with the patient as well as the usual and expected course. The patient understands that the diagnosis is provisional and that in medicine we are not always correct and that further workup is often warranted. Usual and customary warnings were given. All of the patient's questions were answered. The patient was instructed to return to the emergency department should the symptoms at all worsen or return, otherwise to followup with the physician as we discussed. - Data Points Laboratory Results: Laboratory Results 09/28/17 13:40 09/28/17 13:40 09/28/17 09/28/17 09/28/17 13:40 13:40 13:40 WBC 13.30 10^3/uL H 10^3/uL (3.80-9.50) RBC 5.02 10^6/uL 10^6/uL (4.40-6.38) Hgb 15.1 g/dL g/dL (13.7-17.5) Hct 44.8 % % (40.0-51.0) MCV 89.2 fL fL (81.5-99.8) MCH 30.1 pg pg (27.9-34.1) MCHC 33.7 g/dL g/dL (32.4-36.7) RDW 13.9 % % (11.5-15.2) Plt Count 207 10^3/uL 10^3/uL (150-400) MPV 11.7 fL fL (8.7-11.7) Neut % (Auto) 64.8 % % (39.3-74.2) Lymph % (Auto) 25.9 % % (15.0-45.0) [place] % (Auto) 6.8 % % (4.5-13.0) Eos % (Auto) 1.8 % % (0.6-7.6) Baso % (Auto) 0.4 % % (0.3-1.7) Nucleat RBC Rel Count 0.0 % % (0.0-0.2) Absolute Neuts (auto) 8.62 10^3/uL H 10^3/uL (1.70-6.50) Absolute Lymphs (auto) 3.44 10^3/uL H 10^3/uL (1.00-3.00) Absolute Monos (auto) 0.91 10^3/uL H 10^3/uL (0.30-0.80) Absolute Eos (auto) 0.24 10^3/uL 10^3/uL (0.03-0.40) Absolute Basos (auto) 0.05 10^3/uL 10^3/uL (0.02-0.10) Absolute Nucleated RBC 0.00 10^3/uL 10^3/uL (0-0.01) Immature Gran % 0.3 % % (0.0-1.1) Immature Gran # 0.04 10^3/uL 10^3/uL (0.00-0.10) PT Pending INR Pending APTT Pending Sodium 144 mEq/L mEq/L (135-145) Potassium 4.1 mEq/L mEq/L (3.5-5.2) Chloride 109 mEq/L mEq/L (97-110) Carbon Dioxide 22 mEq/l mEq/l (22-31) Anion Gap 13 mEq/L mEq/L (8-16) BUN 14 mg/dL mg/dL (7-23) Creatinine 0.9 mg/dL mg/dL (0.7-1.3) Estimated GFR > 60 Glucose 91 mg/dL mg/dL (70-100) Calcium 9.1 mg/dL mg/dL (8.5-10.4) Medications Given: Discontinued Medications Diltiazem HCl (Cardizem 25 Mg/5 Ml Vial) 10 mg IVP EDNOW ONE Stop: 09/28/17 13:39 Last Admin: 09/28/17 14:19 Dose: 10 mg Diltiazem HCl (Diltiazem Hcl) 10 mg IV ONCE ONE Stop: 09/28/17 14:16 Last Admin: 09/28/17 14:22 Dose: 10 mg Sodium Chloride (Ns) 1,000 mls @ 0 mls/hr IV EDNOW ONE; Wide Open PRN Reason: Protocol Stop: 09/28/17 13:39 Last Admin: 09/28/17 14:19 Dose: 1,000 mls Departure - Departure Disposition: Home, Routine, Self-Care Clinical Impression: Atrial fibrillation Condition: Fair Instructions: A-fib (Atrial Fibrillation) (ED) Referrals: Lio Bryan MD [Primary Care Provider] - 2-3 days, call for appt.
[2017-09-28 13:50] LABS: PLATELET COUNT 207 10^3/uL (150-400)
--- NOTE | 2017-09-28 14:04 | CPEKG ---
Heart Rate: 130 RR Interval: 462 QRSD Interval: 82 QT Interval: 324 QTC Interval: 477 QRS [place]: 86 T Wave [place]: 13 EKG Severity - ABNORMAL ECG - EKG Impression: ATRIAL FIBRILLATION EKG Impression: BORDERLINE PROLONGED QT INTERVAL Electronically Signed By: Teofilo Oliver 28-Sep-2017 14:11:14
[2017-09-28] MEDS ORDERED: DILTIAZEM 125 MG/25 ML VIAL IV ONE (14:15)
[2017-09-28 14:55] LABS: INR 1.49 (0.83-1.16); PROTIME(PATIENT) 18.2 SEC (12.0-15.0)
[2017-09-28 15:11] VITALS: BP 119/91; PULSE 64; RESP 16; TEMP 98.4; O2SAT 97
== END 2017-09-28 15:16 | disposition home or self-care (01) ==
DX: I48.91 Unspecified atrial fibrillation (principal); I10 Essential (primary) hypertension; E86.9 Volume depletion, unspecified; Z79.01 Long term (current) use of anticoagulants
CPT/HCPCS: 96374

== ENCOUNTER 2018-06-30 11:25 | Emergency (ER) | payer MEDICARE, OTHER ==
[2018-06-30] MEDS ORDERED: DILTIAZEM 25 MG/5 ML VIAL IVP ONE ×3 (11:49→14:36)
--- NOTE | 2018-06-30 11:51 | EDPHY ---
H & P Stated Complaint: "I need my afib reset" States in afib x 3days Time Seen by Provider: 06/30/18 11:43 HPI/ROS: CHIEF COMPLAINT: "I;m in rapid AFib again" HISTORY OF PRESENT ILLNESS: 57-year-old male familiar to emergency department staff, history of atrial fibrillation, chronic anticoagulation with warfarin, complaining of 2 days of palpitations, senses that he is in rapid atrial fibrillation. Arrives via private vehicle No syncope. No near syncope. No chest pain. No back pain. No dyspnea. PRIMARY CARE PROVIDER: [facility], [place] REVIEW OF SYSTEMS: 10 systems reviewed and negative with the exception of the elements mentioned in the history of present illness PAST MEDICAL & SURGICAL HISTORY: Atrial fibrillation. Chronic anticoagulation with warfarin SOCIAL HISTORY: Denies acute alcohol or drug use PHYSICAL EXAM (Prior to examination, patient consented to physical exam, hands were washed and my usual and customary physical exam procedures followed) 1) GENERAL: Well-developed, well-nourished, alert and oriented. Appears to be in no acute distress. Answering questions appropriately 2) HEAD: Normocephalic, atraumatic 3) HEENT: Pupils equal, round, reactive to light bilaterally. Sclera anicteric. 4) NECK: Full range of motion, no meningeal signs. 5) LUNGS: Clear auscultation bilaterally, no wheezes, no rhonchi, no retractions. 6) HEART: Regular rate and rhythm, no murmur, no heave, no gallop. 7) ABDOMEN: No guarding, no rebound, no focal tenderness, negative McBurney's, negative Taveras's, negative Rovsing's, negative peritoneal sign, 8) MUSCULOSKELETAL: Moving all extremities, no focal areas of tenderness, no obvious trauma. No peripheral edema or discoloration. 9) BACK: No CVA tenderness, no midline vertebral tenderness, no fluctuance, no step-off, no obvious trauma, no visual or palpable abnormality. 10) SKIN: No rash, no petechiae. 11) Psychiatric: Patient is oriented X 3, there is no agitation. DIFFERENTIAL DIAGNOSIS: In no particular order, including but not limited to myocardial ischemia, cardiac dysrhythmia, pulmonary embolus, chest wall pain, pleural inflammation and pulmonary infectious causes. - Personal History Current Tetanus Diphtheria and Acellular Pertussis (TDAP): Yes Tetanus Vaccine Date: 2008 - Medical/Surgical History Hx Asthma: No Hx Chronic Respiratory Disease: No Hx Diabetes: No Hx Cardiac Disease: Yes Hx Renal Disease: No Hx Cirrhosis: No Hx Alcoholism: No Hx HIV/AIDS: No Hx Splenectomy or Spleen Trauma: No Other PMH: A fib, RSD, migraine headache, hemorrhoids, HTN, depression, anxiety , neuropathy, PTSD, ANAY, marijuana use. IBS, rectal bleeding r/t anticoagulants , TIA, MS - Social History Smoking Status: Never smoked Constitutional: Initial Vital Signs Temperature (C) 36.8 C 06/30/18 11:26 Heart Rate 101 H 06/30/18 11:26 Respiratory Rate 18 06/30/18 11:26 Blood Pressure 141/121 H 06/30/18 11:26 O2 Sat (%) 94 06/30/18 11:26 O2 Delivery Mode Room Air Allergies/Adverse Reactions: amiodarone [Amiodarone] Allergy (Severe, Verified 06/30/18 11:28) Hives aspirin [Aspirin] Allergy (Severe, Verified 06/30/18 11:28) Hives digoxin [Digoxin] Allergy (Severe, Verified 06/30/18 11:28) Hives ezetimibe [Ezetimibe] Allergy (Severe, Verified 06/30/18 11:28) Hives metoprolol succinate [From Toprol XL] Allergy (Severe, Verified 06/30/18 11:28) Hives morphine [Morphine] Allergy (Severe, Verified 06/30/18 11:28) Other-Enter Comments Penicillins Allergy (Severe, Verified 06/30/18 11:28) Hives simvastatin [Simvastatin] Allergy (Severe, Verified 06/30/18 11:28) Hives zolpidem [Zolpidem] Allergy (Severe, Verified 06/30/18 11:28) Hives lorazepam [Lorazepam] Allergy (Unknown, Verified 06/30/18 11:28) Barbiturates Allergy (Verified 06/30/18 11:28) carvedilol Allergy (Verified 06/30/18 11:28) Hives codeine [Codeine] Allergy (Verified 06/30/18 11:28) Horse/Equine Containing Products [Horse/Equine Product Derivatives] Allergy ( Verified 06/30/18 11:28) lidocaine [Lidocaine] Allergy (Verified 06/30/18 11:28) meperidine HCl [From Demerol] Allergy (Verified 06/30/18 11:28) Opioids - Morphine Analogues [Opioids-Morphine & Related] Allergy (Verified 11:28) Unknown procaine HCl [From Novocain] Allergy (Verified 06/30/18 11:28) Sulfa (Sulfonamide Antibiotics) Allergy (Verified 06/30/18 11:28) sumatriptan [From Imitrex] Allergy (Verified 06/30/18 11:28) sumatriptan succinate [From Imitrex] Allergy (Verified 06/30/18 11:28) tetracycline [Tetracycline] Allergy (Verified 06/30/18 11:28) Home Medications: Medication Instructions Recorded Dofetilide [Tikosyn 0.25 MG (*)] 0.25 mg PO BID 04/18/16 Lisinopril [Zestril 40 mg (*)] 40 mg PO DAILY 04/18/16 Diltiazem Cd [Cardizem ER 120 MG 120 mg PO TID #90 cap 04/21/16 (*)] Warfarin Sodium [Coumadin 5MG (*)] 10 mg PO SUMOTUWETHFR 04/25/16 Warfarin Sodium [Coumadin 5MG (*)] 12.5 mg PO SA 04/25/16 Ticosyn 05/01/16 Medical Decision Making ED Course/Re-evaluation: 11:50 a.m.: Discussed the case with secondary supervising physician Dr. Jarrod Patten in the ER is familiar with the patient as well. Reviewed old medical records. Patient typically responds well to a bolus of diltiazem which will be given to the patient. He currently denies chest pain, dyspnea, syncope or near syncope. 12:24 p.m.: Heart rate 65. Patient does not want leave the ER yet. Patient wants to eat and have 1 L IV saline noting that he is concerned he will convert into rapid afib if he eats. 152 pm: Patient sat up and converted into rapid afib rate 150. Will be given further Diltiazem. Discussed with Dr Patten at this time. Revaluated patient. No complaints of chest pain, dyspnea. no syncope or near syncope. 3:01 p.m.: Heart rate in the 80s. Discussed case with Dr. Jarrod Patten in the ER. Patient is symptomatic. Plan will be discharge. Patient upset that he is being discharged, states that he will go back into atrial fibrillation, he walked out of the ER visibly upset.. I have provided him my usual and customary cardiac precautions instructions prior to leaving. - Data Points Laboratory Results: Laboratory Results 06/30/18 11:47 06/30/18 11:47 Medications Given: Discontinued Medications Diltiazem HCl (Cardizem 25 Mg/5 Ml Vial) 20 mg IVP EDNOW ONE Stop: 06/30/18 11:50 Last Admin: 06/30/18 11:54 Dose: 20 mg Diltiazem HCl (Cardizem 25 Mg/5 Ml Vial) 10 mg IVP EDNOW ONE Stop: 06/30/18 13:52 Last Admin: 06/30/18 14:00 Dose: 10 mg Diltiazem HCl (Cardizem 25 Mg/5 Ml Vial) 10 mg IVP EDNOW ONE Stop: 06/30/18 14:37 Last Admin: 06/30/18 15:11 Dose: Not Given Sodium Chloride (Ns) 1,000 mls @ 0 mls/hr IV ONCE ONE; Wide Open PRN Reason: Protocol Stop: 06/30/18 13:00 Last Admin: 06/30/18 13:01 Dose: 1,000 mls Point of Care Test Results: Chemistry 06/30/18 11:51 POC Troponin I 0.00 ng/mL ng/mL (0.00-0.08) Departure - Departure Disposition: Home, Routine, Self-Care Clinical Impression: A-fib Qualifiers: Atrial fibrillation type: unspecified Qualified Code(s): I48.91 - Unspecified atrial fibrillation Condition: Good Instructions: Tachycardia (ED) Additional Instructions: If you develop chest pain, shortness of breath or palpitations return to the ER Referrals: Lio Bryan MD [Primary Care Provider] - As per Instructions
[2018-06-30 12:02] LABS: PLATELET COUNT 244 10^3/uL (150-400)
[2018-06-30] MEDS ORDERED: NS 1,000 ML IV ONE (12:59)
[2018-06-30 15:22] VITALS: BP 125/81
--- NOTE | 2018-07-03 10:52 | CPEKG ---
Test Reason : OPEN Blood Pressure : / mmHG Vent. Rate : 154 BPM Atrial Rate : 259 BPM P-R Int : 109 ms QRS Dur : 084 ms QT Int : 276 ms P-R-T Axes : 000 075 -56 degrees QTc Int : 442 ms Atrial fibrillation Ventricular premature complex Nonspecific T abnormalities, diffuse leads Confirmed by Jarrod Patten ([id number]) on 07/03/2018 10:52:10 AM Referred By: Confirmed By:Jarrod Patten
== END 2018-06-30 15:05 | disposition home or self-care (01) ==
DX: I48.91 Unspecified atrial fibrillation (principal); I10 Essential (primary) hypertension; F43.10 Post-traumatic stress disorder, unspecified; F32.9 Major depressive disorder, single episode, unspecified; F41.9 Anxiety disorder, unspecified; G62.9 Polyneuropathy, unspecified; E86.9 Volume depletion, unspecified; Z79.01 Long term (current) use of anticoagulants
CPT/HCPCS: 84484-ER; 96374

== ENCOUNTER 2018-07-01 13:25 | Inpatient (IN) | payer OTHER ==
[2018-07-01] MEDS ORDERED: NS 500 ML IV ONE (13:36)
--- NOTE | 2018-07-01 13:53 | EDPHY ---
H & P Time Seen by Provider: 07/01/18 13:32 HPI/ROS: HPI Atrial fibrillation, chest pain, palpitations. 57-year-old male by private vehicle. He is a very familiar patient in our emergency department. He has a history of chronic atrial fibrillation. He is anticoagulated on warfarin. He is notoriously noncompliant with his diltiazem. He presents to the emergency department with complaint of palpitations and tachycardia. He was just seen in our emergency department yesterday for the same complaint. He was given 2 doses of diltiazem, he was rate controlled and then discharged. He comes back to the emergency department stating that he has been in and out of atrial fibrillation with a rapid ventricular response since being discharged yesterday and has had associated left anterior chest pain as well. He tells me that he took 120 mg of diltiazem at 10:00 a.m. This morning. He tells me that he does not feel that his diltiazem is working properly. ROS: Constitutional: No fever, no chills. No weakness. Eyes: No discharge. No changes in vision. ENT: No sore throat. No nasal congestion or rhinorrhea. Respiratory: No cough. No shortness of breath. Cardiac: As above. Gastrointestinal: No abdominal pain, no vomiting, no diarrhea. Genitourinary: No hematuria. No dysuria or increased frequency with urination. Musculoskeletal: No back pain. No neck pain. No myalgias or arthralgias. Skin: No rashes. Neurological: No headache. No focal weakness or altered sensation. Past medical history: Atrial fibrillation on chronic anticoagulation with warfarin, migraine headaches, depression, hypertension, anxiety, neuropathy, PTSD, MS, TIAs. [facility] care [facility]. Social history: Denies alcohol, IV drugs and street drugs. Nonsmoker. Here with his friend. Physical Exam: General Appearance: Alert, no distress. This patient is responding to questions appropriately and in full sentences. This patient appears well- hydrated and well-nourished. Eyes: Pupils equal and round no pallor or injection. No lid edema, erythema or injection. Respiratory: There are no retractions, lungs are clear to auscultation with good air movement bilaterally. Cardiovascular: Irregular, irregular rhythm. He is not tachycardic at this time. No murmur. Gastrointestinal: Abdomen is soft and nontender, no masses, bowel sounds normal. No focal tenderness at McBurney's point. No Taveras sign. Neurological: Motor sensory function is grossly intact. Cranial nerves are normal. Gait is normal. Skin: Warm and dry, no rashes. Musculoskeletal: Neck is supple and nontender. Extremities are symmetrical. All joints range without pain or impingement. Psychiatric: No agitation. No depression. Database: EKG: EKG time is 1:44 p.m.; EKG shows a narrow complex tachycardia, likely a flutter with 2-1 av block with ventricular rate of 145. There is a nonspecific interventricular conduction delay. The QRS, QT intervals are within normal limits. There are no ST-T wave changes indicative of ischemic or injury pattern. No evidence of right heart strain. Interpreted by me. Imaging: Procedures: Emergency department course: Triage vital signs reviewed. Patient tachycardic at 151. In triage. IV placed. He was placed on a laboratory monitor. He was started on IV normal saline with 500 cc to be given over the next hour. He will initially be given a diltiazem loading drip at 2.5 milligrams/minute until his rate comes down below 90. He will then be placed on a steady state drip at 10 milligrams/hour. 2:00 p.m., discussed case with on-call hospitalist Dr. Ramon Martinez. He is familiar with this patient. He accepts this patient for admission to telemetry observation. The patient was given a total of 50 mg of IV diltiazem as a loading drip. His rate has been all over the place from the mid 80s to the 140s. He is currently on a steady state diltiazem drip at 15 milligrams/hour. Blood pressures have remained stable. His admitting physician will be Dr. Mo who saw the patient in the emergency department. She feels comfortable with the patient being admitted to the floor, telemetry, she will consider amiodarone once there. The patient was admitted to the hospitalist service in stable condition. Differential Diagnosis: The differential diagnosis on this patient includes but is not limited to atrial fibrillation with rapid ventricular response, noncompliance with rate control medications. Myocardial infarction, pulmonary embolism, hyperthyroid state, electrolyte issue unlikely. This represents a partial list of diagnoses considered. These considerations are based on history, physical exam, past history, reassessment and diagnostic testing. Smoking Status: Never smoked Constitutional: Initial Vital Signs Temperature (C) 36.6 C 07/01/18 13:27 Heart Rate 151 H 07/01/18 13:27 Respiratory Rate 16 07/01/18 13:27 Blood Pressure 119/94 H 07/01/18 13:27 O2 Sat (%) 93 07/01/18 13:27 O2 Delivery Mode Room Air O2 (L/minute) 2 Allergies/Adverse Reactions: amiodarone [Amiodarone] Allergy (Severe, Verified 06/30/18 11:28) Hives aspirin [Aspirin] Allergy (Severe, Verified 06/30/18 11:28) Hives digoxin [Digoxin] Allergy (Severe, Verified 06/30/18 11:28) Hives ezetimibe [Ezetimibe] Allergy (Severe, Verified 06/30/18 11:28) Hives metoprolol succinate [From Toprol XL] Allergy (Severe, Verified 06/30/18 11:28) Hives morphine [Morphine] Allergy (Severe, Verified 06/30/18 11:28) Other-Enter Comments Penicillins Allergy (Severe, Verified 06/30/18 11:28) Hives simvastatin [Simvastatin] Allergy (Severe, Verified 06/30/18 11:28) Hives zolpidem [Zolpidem] Allergy (Severe, Verified 06/30/18 11:28) Hives lorazepam [Lorazepam] Allergy (Unknown, Verified 06/30/18 11:28) Barbiturates Allergy (Verified 06/30/18 11:28) carvedilol Allergy (Verified 06/30/18 11:28) Hives codeine [Codeine] Allergy (Verified 06/30/18 11:28) Horse/Equine Containing Products [Horse/Equine Product Derivatives] Allergy ( Verified 06/30/18 11:28) lidocaine [Lidocaine] Allergy (Verified 06/30/18 11:28) meperidine HCl [From Demerol] Allergy (Verified 06/30/18 11:28) Opioids - Morphine Analogues [Opioids-Morphine & Related] Allergy (Verified 11:28) Unknown procaine HCl [From Novocain] Allergy (Verified 06/30/18 11:28) Sulfa (Sulfonamide Antibiotics) Allergy (Verified 06/30/18 11:28) tetracycline [Tetracycline] Allergy (Verified 06/30/18 11:28) Home Medications: Medication Instructions Recorded Dofetilide [Tikosyn 0.25 MG (*)] 0.25 mg PO BID@,04/18/16 Lisinopril [Zestril 40 mg (*)] 40 mg PO DAILY@04 04/18/16 Warfarin Sodium [Coumadin 5MG (*)] 5 mg PO MOWEFR@04/25/16 Warfarin Sodium [Coumadin 5MG (*)] 10 mg PO SUTUTHSA@04/25/16 Diltiazem Cd [Cardizem ER 120 MG 120 mg PO QID@,,,07/01/18 (*)] Multivitamins [Multivitamin (*)] 1 each PO DAILY 07/01/18 SUMAtriptan [Imitrex 25 MG (*)] 25 mg PO Q2H PRN 07/01/18 Medical Decision Making - Data Points Laboratory Results: Laboratory Results 07/01/18 13:40 07/01/18 07/01/18 07/01/18 13:40 13:40 13:40 PT 24.8 SEC H SEC (12.0-15.0) INR 2.24 H (0.83-1.16) APTT 53.2 SEC H SEC (23.0-38.0) Sodium 138 mEq/L mEq/L (135-145) Potassium 3.6 mEq/L mEq/L (3.5-5.2) Chloride 108 mEq/L mEq/L (97-110) Carbon Dioxide 18 mEq/l L mEq/l (22-31) Anion Gap 12 mEq/L mEq/L (6-14) BUN 23 mg/dL mg/dL (7-23) Creatinine 1.3 mg/dL mg/dL (0.7-1.3) Estimated GFR 57 Glucose 157 mg/dL H mg/dL (70-100) Calcium 9.6 mg/dL mg/dL (8.5-10.4) Magnesium Creatine Kinase CK-MB (CK-2) Fraction Troponin I TSH 2.320 uIU/mL uIU/mL (0.465-4.680) Ethyl Alcohol < 10 mg/dL mg/dL (0-10) 07/01/18 13:00 PT INR APTT Sodium Potassium Chloride Carbon Dioxide Anion Gap BUN Creatinine Estimated GFR Glucose Calcium Magnesium 2.0 mg/dL mg/dL (1.6-2.3) Creatine Kinase 99 IU/L IU/L (0-224) CK-MB (CK-2) Fraction 1.10 ng/mL ng/mL (0.00-4.55) Troponin I < 0.012 ng/mL ng/mL (0.000-0.034) TSH Ethyl Alcohol Medications Given: Discontinued Medications Diltiazem HCl (Cardizem 25 Mg/5 Ml Vial) 20 mg IVP EDNOW ONE Stop: 07/01/18 13:38 Last Admin: 07/01/18 14:46 Dose: 20 mg Sodium Chloride (Ns) 500 mls @ 1,000 mls/hr IV EDNOW ONE PRN Reason: Protocol Stop: 07/01/18 14:05 Last Admin: 07/01/18 14:25 Dose: 500 mls Diltiazem HCl 125 mg/ Dextrose 125 mls @ 0 mls/hr IV EDNOW ONE; As Directed PRN Reason: Protocol Stop: 07/01/18 13:57 Last Admin: 07/01/18 14:23 Dose: 125 mls Departure - Departure Disposition: [facility] In[facility] Acute Clinical Impression: Atrial fibrillation with RVR
[2018-07-01] MEDS ORDERED: DILTIAZEM 125 MG in D5W 125 ML IV ONE (13:56)
[2018-07-01] MEDS: DILTIAZEM 25 MG/5 ML VIAL IVP ONE ×2 (14:01→14:46)
[2018-07-01 14:04] LABS: INR 2.24 (0.83-1.16); PROTIME(PATIENT) 24.8 SEC (12.0-15.0)
--- NOTE | 2018-07-01 14:16 | ASMTCMCOM ---
CM Note CM Note Notes: Chart reviewed. left with [facility] ED return and admission. ED report faxed to Dr. Lio Bryan at [facility] CM available prn Date Signed: 07/01/2018 02:15 PM Electronically Signed By:Jackie Lorenzana RN
[2018-07-01] MEDS ORDERED: DILTIAZEM 25 MG/5 ML VIAL IVP ONE (14:43)
--- NOTE | 2018-07-01 15:56 | PDGENHP ---
History and Physical History and Physical: Chief complaint: Chest pain, AFib RVR History of present illness: The patient is a 57-year-old male with frequent past hospital visits who returns again for atrial fibrillation with RVR. In the past, the patient has tried many antiarrhythmics and cardiac meds, many of which he did not tolerate (see allergy list). He has been evaluated by the local cardiology group for an ablation, but was told he is not a candidate. The patient has been up titrated on diltiazem by his primary care physician in the outpatient setting, from 360 mg to 480 mg. This most recent bout of atrial fibrillation with RVR started about 3 days ago. Around this time, the patient also developed diarrhea from an unknown cause. He denies having eaten any questionable foods or being around anyone else with similar symptoms. He admits he has not been drinking much fluid. He has been feeling weak and fatigued. He has had chest pain, which is common with his atrial fibrillation. He came to the ED yesterday, where he received diltiazem and was discharged. The patient immediately felt his atrial fibrillation worsen and has returned today. He was given pushes of diltiazem and started on a diltiazem drip in the ED. Past medical history: Past medical history: Atrial fibrillation on chronic anticoagulation with warfarin, migraine headaches, depression, hypertension, anxiety, neuropathy, PTSD, demyelinating disease (suspected MS), TIAs. Primary care is through [facility] - Dr. Lio Bryan. Past surgical history: Medications: Please see medication reconciliation form. Allergies: Amiodarone, aspirin, digoxin, metoprolol, carvedilol, morphine, penicillin, simvastatin, zolpidem, lorazepam, barbiturates, codeine, meperidine , lidocaine, opiates, procaine, sulfa, tetracyclines Social history: Denies alcohol, IV drugs and street drugs. Nonsmoker. Here with his friend. Family history: Mother from lung cancer. Father in a MVA. Daughter has recently been diagnosed with MS at 22yo. Review of systems: 10 point review of systems was conducted and is negative except per HPI Physical exam: Vitals: Reviewed General: The patient is an obese male who is A&Ox3 and in no acute distress. HEENT: normocephalic, extraocular movements intact, conjunctivae clear. Nares and oral mucosa pink and moist. Neck: trachea midline, no visible masses, no external lesions. CV: +S1/S2, tachycardic, irregular rate/rhythm. No murmurs/rubs/gallops. Resp: unlabored breathing, lungs clear to auscultation w/o rales, rhonchi, or wheezing. Abd: soft and nondistended, bowel sounds present. Nontender to palpation throughout. Musculoskeletal: Normal muscle tone and bulk. Neuro: cranial nerves II - XII grossly intact. Intact gross motor and sensory function. Psych: appropriate mood/affect. Skin: No rash or ecchymoses. : no suprapubic tendernes. Heme/lymph: No peripheral edema. Labs: WBC 11, hemoglobin 15.8, INR 2.24, CO2 18, anion gap 12. BUN 23, creatinine 1.3, sodium 138, potassium 3.6, chloride 1 weight, calcium 9.6. Troponin I 0.00. Other Data: 1) EKG: Sinus tachycardia, rate 145, P are prolongation, left atrial enlargement. No acute ischemic changes. Personally interpreted. 2) Chest x-ray, one view: No acute cardiopulmonary abnormalities. Personally interpreted. 3) Telemetry - AF RVR. Impression and plan: AF RVR, on warfarin CP, 2/2 above Diarrhea Acute dehydration, 2/2 above HTN, uncontrolled Anxiety, PTSD -continue diltiazem gtt. If this does not work, may change to another chronotropic med. Pt against being electrically cardioverted. -consult Cardiology for cardiac med changes since pt does not tolerate many medications (allergy list is extensive). -IVF. -Check stool panel. -Check mag level today. -Check AM labs. -Continue home meds. -VTE ppx - on warfarin. -Code status - full code. -Observation status for 1 midnight stay.
[2018-07-01] MEDS ORDERED: ACETAMINOPHEN 325 MG TAB PO PRN (16:05)
[2018-07-01] MEDS ORDERED: SUMAtriptan 25 MG TAB PO PRN (16:10)
[2018-07-01] MEDS ORDERED: NS 1,000 ML IV SCH (16:15)
[2018-07-01] MEDS ORDERED: DILTIAZEM 125 MG in D5W 125 ML IV SCH (16:15)
[2018-07-01 16:49] LABS: CREATINE KINASE 99 IU/L (0-224)
[2018-07-01] MEDS ORDERED: MAGNESIUM SULF 1 GM/DEXTROSE 100 ML IV ONE (17:57)
--- NOTE | 2018-07-01 18:03 | PDCARCONS ---
Cardiology Consult Reason for Consult: Paroxysmal atrial fibrillation. Chief Complaint: Palpitations. Requesting Physician: Dr. Mo History of Present Illness: Mr. Reed is a 57-year-old male seen in consultation the progressive care unit. He has a history of episodes of paroxysmal atrial fibrillation dating back many years. There are notes in our medical record that detail this arrhythmia going back more than 8 years. In reviewing his records in talking to him he has been trialed on multiple medications. There is a note in the medical record by Dr. Anson Barry indicating that he has had an adverse reaction to nearly all antiarrhythmic medications that have been trialed. Specifically these include amiodarone and dofetilide both of which did not work and cause side effects. He recalls having been on sotalol which was ineffective. There is mention of adverse reactions to lidocaine and procainamide. Currently he is being treated with diltiazem and Tikosyn which he obtains through his PCP. Unfortunately, he continues to have multiple episodes of atrial arrhythmias. These can occur as frequently as several times a week. He will usually take additional doses of diltiazem in use meditation to improve his symptoms. He states that he is nearly completely debilitated by these arrhythmias. Apparently there have been considerations in the past to both an atrial fibrillation ablation and possibly ablation of his AV node and implantation of a permanent pacemaker. He states that he had agreed to these procedures in the past however they have been abruptly canceled. He also notes that he was told that ablation of his AV node and placement of a pacemaker might result in his . He states that he has had recurrent symptoms of palpitations and an elevated heart rate often on now for the last several days. These have resulted in severe fatigue, breathlessness and mild chest pressure. In this arrhythmia he has been unable to take care of himself and perform his daily tasks. Because of this he came to the emergency department yesterday. At that time he was in atrial fibrillation. He was given IV diltiazem. He responded with conversion to sinus rhythm only to relapse back into atrial fibrillation. After another bolus of diltiazem he converted back to sinus rhythm. Ultimately the patient was discharged from the emergency department. Because of his recurrent symptoms he came back to the emergency department today. He was noted to be in rapid atrial flutter. He was given IV diltiazem had admitted to telemetry. Subsequently he has reverted back to sinus rhythm. Clearly, in the past, there have been multiple psychosocial issues that have been impeding his ability to receive appropriate care. Apparently at 1 point he was homeless. More recently he has received SSD I and currently has stable housing. History Information - Allergies/Home Medication List Allergies/Adverse Reactions: amiodarone [Amiodarone] Allergy (Severe, Verified 06/30/18 11:28) Hives aspirin [Aspirin] Allergy (Severe, Verified 06/30/18 11:28) Hives digoxin [Digoxin] Allergy (Severe, Verified 06/30/18 11:28) Hives ezetimibe [Ezetimibe] Allergy (Severe, Verified 06/30/18 11:28) Hives metoprolol succinate [From Toprol XL] Allergy (Severe, Verified 06/30/18 11:28) Hives morphine [Morphine] Allergy (Severe, Verified 06/30/18 11:28) Other-Enter Comments Penicillins Allergy (Severe, Verified 06/30/18 11:28) Hives simvastatin [Simvastatin] Allergy (Severe, Verified 06/30/18 11:28) Hives zolpidem [Zolpidem] Allergy (Severe, Verified 06/30/18 11:28) Hives lorazepam [Lorazepam] Allergy (Unknown, Verified 06/30/18 11:28) Barbiturates Allergy (Verified 06/30/18 11:28) carvedilol Allergy (Verified 06/30/18 11:28) Hives codeine [Codeine] Allergy (Verified 06/30/18 11:28) Horse/Equine Containing Products [Horse/Equine Product Derivatives] Allergy ( Verified 06/30/18 11:28) lidocaine [Lidocaine] Allergy (Verified 06/30/18 11:28) meperidine HCl [From Demerol] Allergy (Verified 06/30/18 11:28) Opioids - Morphine Analogues [Opioids-Morphine & Related] Allergy (Verified 11:28) Unknown procaine HCl [From Novocain] Allergy (Verified 06/30/18 11:28) Sulfa (Sulfonamide Antibiotics) Allergy (Verified 06/30/18 11:28) tetracycline [Tetracycline] Allergy (Verified 06/30/18 11:28) Home Medications: Dofetilide [Tikosyn 0.25 MG (*)] 0.25 mg PO BID@04,16 04/18/16 [Last Taken 07/01 04:00] Lisinopril [Zestril 40 mg (*)] 40 mg PO DAILY@04 04/18/16 [Last Taken 07/01/18] Warfarin Sodium [Coumadin 5MG (*)] 5 mg PO MOWEFR@16 04/25/16 [Last Taken ] Warfarin Sodium [Coumadin 5MG (*)] 10 mg PO SUTUTHSA@16 04/25/16 [Last Taken ] Diltiazem Cd [Cardizem ER 120 MG (*)] 120 mg PO QID@04,,,07/01/18 [Last Taken 07/01/18 04:00] Multivitamins [Multivitamin (*)] 1 each PO DAILY 07/01/18 [Last Taken Unknown] SUMAtriptan [Imitrex 25 MG (*)] 25 mg PO Q2H PRN 07/01/18 [Last Taken Unknown] I have personally reviewed and updated: family history, medical history, social history, surgical history Past Medical History: Paroxysmal atrial fibrillation, depression, hypertension, anxiety, neuropathy, PTSD, abnormal MRI with findings suggestive of small vessel disease. - Surgical History Reports: no pertinent surgical hx - Family History Positive for: non-pertinent - Social History Smoking Status: Never smoked Alcohol Use: None Drug Use: None Additional social history: He is currently has SSDI and housing. He does not exercise regularly. Age in Years: < 64 Sex: Male Congestive Heart Failure History: No Hypertension History: Yes Stroke/TIA/Thromboembolism History: No Vascular Disease History: No Diabetes Mellitus: No [id number] Score: 1 Physical Exam Physical Exam: Temp Pulse Resp BP Pulse Ox 36.8 C 142 H 18 122/92 H 96 07/01/18 16:14 07/01/18 16:14 07/01/18 16:14 07/01/18 16:14 07/01/18 16:14 O2 (L/minute) 2 Constitutional: no apparent distress, appears nourished, not in pain Eyes: PERRL, anicteric sclera, EOMI Ears, Nose, Mouth, Throat: moist mucous membranes, hearing normal, ears appear normal, no oral mucosal ulcers Cardiovascular: regular rate and rhythym, no murmur, rub, or gallop, No edema Respiratory: no respiratory distress, no rales or rhonchi, clear to auscultation Gastrointestinal: normoactive bowel sounds, soft, non-tender abdomen, no palpable masses Genitourinary: no bladder fullness, no bladder tenderness Skin: warm, normal color, no rashes or abrasions, no fluctuance, no induration, No mottled Musculoskeletal: full muscle strength, no muscle tenderness, normal joint ROM, no joint effusions Psychiatric: interacting appropriately, not anxious, not encephalopathic, thought process linear Lymph, Heme, Immunologic: no cervical LAD, no supraclavicular LAD Lab and Imaging 07/01/18 13:40 PT 24.8 SEC (12.0-15.0) H 07/01/18 13:40 INR 2.24 (0.83-1.16) H 07/01/18 13:40 APTT 53.2 SEC (23.0-38.0) H 07/01/18 13:40 Sodium 138 mEq/L (135-145) 07/01/18 13:40 Potassium 3.6 mEq/L (3.5-5.2) 07/01/18 13:40 Chloride 108 mEq/L (97-110) 07/01/18 13:40 Carbon Dioxide 18 mEq/l (22-31) L 07/01/18 13:40 Anion Gap 12 mEq/L (6-14) 07/01/18 13:40 BUN 23 mg/dL (7-23) 07/01/18 13:40 Creatinine 1.3 mg/dL (0.7-1.3) 07/01/18 13:40 Estimated GFR 57 07/01/18 13:40 Glucose 157 mg/dL (70-100) H 07/01/18 13:40 Calcium 9.6 mg/dL (8.5-10.4) 07/01/18 13:40 Magnesium 2.0 mg/dL (1.6-2.3) 07/01/18 13:00 Creatine Kinase 99 IU/L (0-224) 07/01/18 13:00 CK-MB (CK-2) Fraction 1.10 ng/mL (0.00-4.55) 07/01/18 13:00 Troponin I < 0.012 ng/mL (0.000-0.034) 07/01/18 13:00 TSH 2.320 uIU/mL (0.465-4.680) 07/01/18 13:40 Urine Opiates Screen NEGATIVE (NEGATIVE) 07/01/18 15:35 Urine Barbiturates NEGATIVE (NEGATIVE) 07/01/18 15:35 Ur Phencyclidine Scrn NEGATIVE (NEGATIVE) 07/01/18 15:35 Ur Amphetamine Screen NEGATIVE (NEGATIVE) 07/01/18 15:35 U Benzodiazepines Scrn NEGATIVE (NEGATIVE) 07/01/18 15:35 Urine Cocaine Screen NEGATIVE (NEGATIVE) 07/01/18 15:35 U Marijuana (THC) Screen NEGATIVE (NEGATIVE) 07/01/18 15:35 Ethyl Alcohol < 10 mg/dL (0-10) 07/01/18 13:40 A/P Assessment: This is a 57-year-old male with a longstanding history of paroxysmal atrial fibrillation. Per his report he is highly symptomatic when he develops atrial fibrillation. Additionally he has a history of PACs and PVCs for which she also experiences symptoms of palpitations. He has been trialed on multiple medications in the past and has had adverse reactions or failure to achieve resolution of his symptoms of atrial fibrillation to nearly all medications. He is currently on a combination of diltiazem 120 mg taken 4 times daily and Tikosyn 250 mg twice daily and is on systemic anticoagulation with warfarin which is therapeutic today. He has been experiencing frequent episodes of palpitations which have worsened over the last several days. He has had objective findings of atrial fibrillation and flutter. Clearly there are some psychosocial issues that have impeded his ability to affectively receive medical care. This is noted in the medical record through comments made in emergency department visits and office notes from [facility]. Plan: He is now back in sinus rhythm. I would like him to have an electrocardiogram in sinus rhythm specifically to assess his DE interval and QT duration. This may assist in allowing us to make more appropriate decisions regarding medical therapy. He may be a candidate for higher doses of Tikosyn plus additional medications to help control his ventricular response while in atrial fibrillation. Clearly, there are limited medication options at this point and depending on whether not he is a candidate for up titration of these medications and whether not he achieves successful control of his atrial fibrillation with these medication changes the best course of action may be either an atrial fibrillation ablation or ablation of his AV node and placement of a permanent pacemaker. This will have to be discussed with the electrophysiologic service. He states that these discussions have occurred in the past however he has been thought to be too high risk to have these procedures. If those comments were made, they were likely based on his previous social situation during a time when he was homeless. At this point, those limitations no longer exist. Furthermore, he would clearly benefit from treatment and optimization of his obstructive sleep apnea and weight loss. This can be discussed with him in ongoing fashion. Tonight, we will use IV diltiazem as needed should he have recurrent atrial arrhythmias. I will plan to continue him on his current dose of Tikosyn pending ECG in the morning. Will also replete his electrolytes and check a TSH. Review of Systems Review of Systems: - Review of Systems Constitutional: no symptoms reported EENTM: no symptoms reported Respiratory: no symptoms reported Cardiac: see HPI Gastrointestinal/Abdominal: see HPI Genitourinary: no symptoms Musculoskelatal: no symptoms Skin: no symptoms Neurological: no symptoms, see HPI Hematologic/Lymphatic: no symptoms reported Immunologic/allergic: no symptoms reported All Other Systems: Reviewed and Negative
[2018-07-01] MEDS: DOFETILIDE 0.25 MG CAP PO SCH (18:25)
--- NOTE | 2018-07-01 21:15 | CPEKG ---
Test Reason : OPEN Blood Pressure : / mmHG Vent. Rate : 145 BPM Atrial Rate : 146 BPM P-R Int : 207 ms QRS Dur : 136 ms QT Int : 368 ms P-R-T Axes : 061 086 060 degrees QTc Int : 572 ms Sinus tachycardia Prolonged MD interval LAE, consider biatrial enlargement Nonspecific intraventricular conduction delay Confirmed by Mundo Hernandez ([id number]) on 07/01/2018 9:14:48 PM Referred By: Confirmed By:Mundo Hernandez
[2018-07-02 03:46] LABS: INR 2.06 (0.83-1.16); PROTIME(PATIENT) 23.3 SEC (12.0-15.0)
[2018-07-02] MEDS ORDERED: DOFETILIDE 0.25 MG CAP PO SCH (04:00)
[2018-07-02] MEDS: DOFETILIDE 0.25 MG CAP PO SCH (04:15)
[2018-07-02] MEDS: LISINOPRIL 40 MG TAB PO SCH (04:15)
--- NOTE | 2018-07-02 06:20 | CPEKG ---
Test Reason : OPEN Blood Pressure : / mmHG Vent. Rate : 073 BPM Atrial Rate : 075 BPM P-R Int : 158 ms QRS Dur : 084 ms QT Int : 449 ms P-R-T Axes : 046 081 071 degrees QTc Int : 495 ms Sinus rhythm Abnormal R-wave progression, early transition Nonspecific T abnrm, anterolateral leads Borderline prolonged QT interval Confirmed by Robert West ([id number]) on 07/02/2018 6:20:16 AM Referred By: Confirmed By:Robert West
[2018-07-02] MEDS: MULTIVITAMINS 1 EACH TAB PO SCH (09:12)
--- NOTE | 2018-07-02 10:18 | SOAPPROG ---
SOAP Progress Note Assessment/Plan: Assessment: He has highly symptomatic atrial fibrillation. He continues to have documented episodes of atrial fibrillation and atrial flutter despite Tikosyn therapy. Additionally he continues to have a rapid ventricular response despite high doses of diltiazem. He has been on multiple other medications in the past and, unfortunately, has experienced either a failure of control of his atrial arrhythmias or an adverse reaction/allergy to these medications. At this point , I do not think there are pharmacologic options available to him to help him maintain sinus rhythm. I think that we can advance his medical therapy in attempts to control his ventricular rate when in atrial fibrillation or flutter however I think he will require an electrophysiologic procedure to control the development of this arrhythmia. This was discussed with him today. He agrees to proceed with these discussions. Plan: 1. I would like him to have an echocardiogram to reassess his LV function and evaluate for possible valvular disease and left atrial dimensions. 2. I will continue his Cardizem 120 mg 4 times daily. I did add a low-dose of atenolol 25 mg twice daily. I explained to him that neither of these medications will result in suppression of his atrial arrhythmias however may help with control of his ventricular response. 3. I discontinue the Tikosyn. 4. I would like him to be seen by electrophysiology tomorrow for consideration of an ablation procedure either in the form of a pulmonary vein isolation procedure or placement of a permanent pacemaker and plans for an AV node ablation. 5. As an outpatient we will need to refer him to pulmonology regarding optimization of his obstructive sleep apnea. 07/02/18 10:14 Subjective: He is doing well today. He has maintained sinus rhythm overnight. He continues to have palpitations which are mild and related to PVCs and PACs. His symptoms with these minor arrhythmias are distinctly different from those when he is in atrial fibrillation. I reviewed his electrocardiogram. This does not indicate any evidence of a first-degree AV block. His corrected QT interval is, however, nearly 500 milliseconds. This precludes advancement of his Tikosyn dose. Objective: Vital Signs Temp Pulse Resp BP Pulse Ox 36.8 C 78 18 144/108 H 94 07/02/18 08:00 07/02/18 08:00 07/02/18 08:00 07/02/18 08:00 07/02/18 08:00 Microbiology 07/01/18 20:15 Gastrointestinal Tract Panel (PCR) - Final Stool No Organism Detected By Pcr Laboratory Results 07/02/18 03:14 07/01/18 07/02/18 07/03/18 05:59 05:59 05:59 Intake Total 1665 Output Total 850 Balance 815 PT 23.3 SEC (12.0-15.0) H 07/02/18 03:14 INR 2.06 (0.83-1.16) H 07/02/18 03:14 Physical Exam - Physical Exam General Appearance: WD/WN, alert, no apparent distress EENT: PERRL/EOMI, normal ENT inspection, pharynx normal, TMs normal Neck: non-tender, full range of motion, supple, normal inspection Respiratory: chest non-tender, lungs clear, normal breath sounds Cardiac/Chest: normal peripheral pulses, regular rate, rhythm Peripheral Pulses: 2+: carotid (R), carotid (L), femoral (R), femoral (L), dorsalis-pedis (R), dorsalis-pedis (L) Abdomen: normal bowel sounds, non-tender, soft Male Genitalia: deferred Rectal: deferred Back: Normal inspection Skin: normal color, warm/dry Lymphatic: no adenopathy Extremities: normal range of motion, non-tender, normal inspection, normal capillary refill Neuro/Psych: no motor/sensory deficits, alert, normal mood/affect, oriented x 3 ICD10 Worksheet Patient Problems: Problems Problem Status Onset Atrial fibrillation with RVR Acute Atrial fibrillation Acute Chest pain Acute Palpitations Acute Supraventricular tachycardia Acute
[2018-07-02] MEDS: DILTIAZEM CD 120 MG CAP PO SCH ×3 (11:17→21:57)
[2018-07-02] MEDS: ATENOLOL 25 MG TAB PO SCH ×2 (11:18→21:57)
--- NOTE | 2018-07-02 12:43 | HOSPPROG ---
Hospitalist Progress Note Assessment/Plan: Impression and plan: AF RVR, on warfarin CP, 2/2 above Diarrhea Acute dehydration, 2/2 above HTN, uncontrolled Anxiety, PTSD -Cardiology consulted, recommend continuing Cardizem 120 mg QID, adding Atenolol 25 mg BID -EP to consult on patient tomorrow for possible ablation -VTE ppx - on warfarin. -Code status - full code. -Pending clinical course Subjective: Patient reports some palpitations this morning Objective: Vital Signs Temp Pulse Resp BP Pulse Ox 36.9 C 89 18 121/90 H 95 07/02/18 11:20 07/02/18 11:20 07/02/18 11:20 07/02/18 11:20 07/02/18 11:20 Microbiology 07/01/18 20:15 Gastrointestinal Tract Panel (PCR) - Final Stool No Organism Detected By Pcr Laboratory Results 07/02/18 03:14 07/01/18 07/02/18 07/03/18 05:59 05:59 05:59 Intake Total 1665 Output Total 850 Balance 815 PT 23.3 SEC (12.0-15.0) H 07/02/18 03:14 INR 2.06 (0.83-1.16) H 07/02/18 03:14 - Physical Exam Constitutional: no apparent distress Eyes: PERRL Ears, Nose, Mouth, Throat: moist mucous membranes Cardiovascular: regular rate and rhythym Respiratory: no respiratory distress Gastrointestinal: soft, non-tender abdomen Skin: warm Musculoskeletal: full muscle strength Neurologic: AAOx3 Psychiatric: interacting appropriately ICD10 Worksheet Patient Problems: Problems Problem Status Onset Atrial fibrillation with RVR Acute Atrial fibrillation Acute Chest pain Acute Palpitations Acute Supraventricular tachycardia Acute
--- NOTE | 2018-07-02 14:15 | PDMN ---
Medical Necessity Medical necessity: Pt meets INPT criteria per MD as of 07/02/18 and [facility] Atrial Fibrillation (est. LOS >2 MN for ongoing eval/mgmt of atrial fib with RVR , chest pain, uncontrolled htn, diarrhea with acute dehydration).
[2018-07-02] MEDS ORDERED: WARFARIN SODIUM 5 MG TAB PO SCH (16:00)
[2018-07-03] MEDS: DILTIAZEM CD 120 MG CAP PO SCH ×4 (03:20→21:15)
[2018-07-03] MEDS: LISINOPRIL 40 MG TAB PO SCH (03:20)
[2018-07-03 04:43] LABS: INR 1.62 (0.83-1.16); PROTIME(PATIENT) 19.4 SEC (12.0-15.0)
[2018-07-03] MEDS ORDERED: NS 500 ML IV ONE (07:29)
[2018-07-03] MEDS: MULTIVITAMINS 1 EACH TAB PO SCH (07:40)
[2018-07-03] MEDS: ATENOLOL 25 MG TAB PO SCH ×2 (07:40→21:16)
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
[2018-07-03] MEDS ORDERED: WARFARIN SODIUM 7.5 MG TAB PO ONE (16:00)
[2018-07-03] MEDS ORDERED: WARFARIN SODIUM 5 MG TAB PO SCH (16:00)
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
[2018-07-04] MEDS ORDERED: ATENOLOL 25 MG TAB PO SCH
[2018-07-04] MEDS: LISINOPRIL 40 MG TAB PO SCH (04:00)
[2018-07-04] MEDS: DILTIAZEM CD 120 MG CAP PO SCH ×2 (04:00→10:11)
[2018-07-04 04:40] LABS: INR 1.84 (0.83-1.16); PROTIME(PATIENT) 21.3 SEC (12.0-15.0)
--- NOTE | 2018-07-04 06:41 | SOAPPROG ---
SOAP Progress Note Assessment/Plan: Assessment: 1. Paroxysmal atrial fibrillation. Patient under control on current medicines with atenolol at this time. He can be discharged home on these meds. He will have follow-up with EP physician in [place] see Israel's prior note for details. This was discussed with Davide and he agrees. Patient is asymptomatic and wants to go home. Plan: DC home on current meds and outpatient arrangement plans. 07/04/18 06:41 Subjective: Patient had a good night last night. No significant arrhythmias. His comfortable on going home on the current meds. Fouzia skinner note from yesterday for contact information for follow-up with [place] EP physician. Objective: Vital Signs Temp Pulse Resp BP Pulse Ox 36.8 C 65 18 114/90 H 91 L 07/04/18 04:00 07/04/18 04:00 07/04/18 04:00 07/04/18 04:00 07/04/18 04:00 07/03/18 07/04/18 07/05/18 05:59 05:59 05:59 Intake Total 1500 850 Output Total 800 1450 Balance 700 -600 PT 21.3 SEC (12.0-15.0) H 07/04/18 03:24 INR 1.84 (0.83-1.16) H 07/04/18 03:24 Physical Exam - Physical Exam Respiratory: lungs clear Cardiac/Chest: regular rate, rhythm, No edema, No JVD ICD10 Worksheet Patient Problems: Problems Problem Status Onset Atrial fibrillation Acute Atrial fibrillation with RVR Acute Chest pain Acute Palpitations Acute Supraventricular tachycardia Acute
[2018-07-04 07:40] VITALS: BP 124/79
[2018-07-04] MEDS: ATENOLOL 25 MG TAB PO SCH (08:38)
[2018-07-04] MEDS: MULTIVITAMINS 1 EACH TAB PO SCH (08:39)
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
--- NOTE | 2018-07-05 12:16 | ECHO ---
[email or web address] [address] [address] Main: [phone] Fax: Transthoracic Echocardiogram Name: WEST FELICIANO MR#: [id number] Study Date: 07/03/2018 Study Time: 08:53 AM Date of : 1960 Age: 57 year(s) Height: 182.9 cm (72 in.) Weight: 104.78 kg (231 lb.) BSA: 2.26 m2 Gender: Male Examination: Echo Indication: poorly controlled a fib Image Quality: Adequate Contrast: Requested by: BP: 120 mmHg/91 mmHg Heart Rate: Rhythm: Indication: poorly controlled a fib Procedure Staff Child Neurologist: Anna Latif [facility] Reading Physician: Andrea Medina MD Requesting Provider: Conclusions: Normal size left ventricle. Mild concentric LV hypertrophy. Low normal left ventricular systolic function. The ejection fraction is visually estimated to be 50 %. Grade 1 diastolic dysfunction (abnormal relaxation). Normal RV function. The left atrium is normal in size. The right atrium is normal in size. The aortic valve is tri-leaflet. Aortic sclerosis is present. Subcostal not well visualized. No pericardial effusion. Measurements: Chambers Valvular Assessment AV/MV Valvular Assessment TV/PV Normal Normal Normal Name Value Range Name Value Range Name Value Range Ao Lila (2D): 3.6 cm (1.4 cm-2.6 AV Vmax: 1.11 m/s (1 m/s-1.7 PV Vmax: 0.58 m/s (0.6 m/s-0.9 cm) m/s) m/s) IVSd (2D): 1.3 cm (0.6 cm-1.1 AV maxP mmHg ( - ) PV PGmax: 1 mmHg ( - ) cm) AV meanP mmHg ( - ) LVDd (2D): 3.7 cm (4.2 cm-5.9 MONIQUE (VTI): 2.0 cm ( - ) cm) MV E Vmax: 0.32 m/s ( - ) LVDs (2D): 2.7 cm (2.1 cm-4 MV A Vmax: 0.63 m/s ( - ) cm) MV E/A: 0.51 ( - ) LVPWd (2D): 1.2 cm (0.6 cm-1 cm) MV PHT: 0.083 s ( - ) LVOTd 2.0 cm 2.0 cm mm MVA (PHT): 2.7 s ( - ) LVEF (BP): 58 % (>=55 %) Visual EF: 50 % Patient: WEST FELICIANO Study Date: 07/03/2018 Page 1 of 2 08:53 AM EF Range: 50-55 % RVDd(2D): 3.7 cm (1.9 cm-3.8 cmmm) Continued Measurements: Chambers Valvular Assessment AV/MV Name Value Name Value LADs: 3.1 cm MV DecTime: 264 m/s LADs Lon.3 cm MV E' Septal: 0.07 m/s LA Area: 16.5 cm2 MV E/E' Septal: 4.70 LA Volume: 44 ml MV E/E' Lateral: 4.00 LA Volume Index: 19.5 ml/m2 RA Area: 10.8 cm2 Additional Vessels Name Value Ao Ascendin.6 cm Findings: Left Ventricle: Normal size left ventricle. Mild concentric LV hypertrophy. Low normal left ventricular systolic function. The ejection fraction is estimated to be 50-55 %. The ejection fraction is visually estimated to be 50 %. No regional wall motion abnormality. Grade 1 diastolic dysfunction (abnormal relaxation). Right Ventricle: Normal size right ventricle. Normal RV function. Left Atrium: The left atrium is normal in size. Right Atrium: The right atrium is normal in size. Mitral Valve: The mitral valve is normal in appearance and function. Trivial mitral valve regurgitation. No mitral stenosis is present. Aortic Valve: The aortic valve is tri-leaflet. Aortic sclerosis is present. There is no significant aortic valve regurgitation. No aortic valve stenosis is present. Tricuspid Valve: The tricuspid valve is normal in appearance and function. Trivial tricuspid valve regurgitation. Pulmonic Valve: Pulmonary valve not well visualized. Aorta: The aorta is normal. Normal size aortic root measuring 3.6 cm. Normal size ascending aorta measuring 3.6 cm. IVC: Subcostal not well visualized. Pericardium: No pericardial effusion. No pleural effusion. Exam Comments: Very technically difficult exam. (No Signature Object) Patient: WEST FELICIANO Study Date: 07/03/2018 Page 2 of 2 08:53 AM [id number]
--- NOTE | 2018-07-06 09:31 | CPEKG ---
Test Reason : OPEN Blood Pressure : / mmHG Vent. Rate : 063 BPM Atrial Rate : 064 BPM P-R Int : 150 ms QRS Dur : 085 ms QT Int : 420 ms P-R-T Axes : 044 088 008 degrees QTc Int : 430 ms Sinus rhythm Borderline T abnormalities, anterior leads Confirmed by Daniel Becerra ([id number]) on 07/06/2018 9:31:08 AM Referred By: Confirmed By:Daniel Becerra
== END 2018-07-04 12:50 | disposition home or self-care (01) | DRG 310 ==
LOC: F2W 13:59 → OBSVTOIN 07-02 12:57
PROVIDERS: ADMIT Student in an Organized Health Care Education/Training Program; ATTEND Student in an Organized Health Care Education/Training Program
DX: I48.0 Paroxysmal atrial fibrillation (principal); R19.7 Diarrhea, unspecified; E86.0 Dehydration; G47.33 Obstructive sleep apnea (adult) (pediatric); F43.10 Post-traumatic stress disorder, unspecified; I10 Essential (primary) hypertension; F41.8 Other specified anxiety disorders; G43.909 Migraine, unspecified, not intractable, without status migrainosus; G35 Multiple sclerosis; Z79.01 Long term (current) use of anticoagulants; Z86.73 Personal history of transient ischemic attack (TIA), and cerebral infarction without residual deficits
CPT/HCPCS: 80305; 96365; 96366; 97165-GO; G0378; G0480; G8987-GO-CI; G8988-GO-CI; G8989-GO-CI; J3475